=== PATIENT | female | born 1935 | race Caucasian/White ===

== ENCOUNTER → 2016-12-28 | Outpatient (CLI) | payer OTHER ==
--- NOTE | 2016-12-28 14:09 | MAMMOGRAPHY REPORT ---
BILATERAL DIGITAL SCREENING MAMMOGRAM WITH CAD: 12/28/2016 TECHNIQUE: Current study was also evaluated with a Computer Aided Detection (CAD) system. COMPARISON: Comparison is made to exams dated: 12/20/2015 mammogram, 11/02/2014 mammogram, 10/01/2013 mammogram, 09/15/2012 mammogram, 09/11/2011 mammogram - [facility], and 08/25/2009. BREAST COMPOSITION: There are scattered areas of fibroglandular density in both breasts. FINDINGS: No suspicious masses, calcifications, or areas of architectural distortion are noted in e ither breast. There has been no significant interval change compared to prior exams. Scattered bilat eral benign-appearing calcifications are not significantly changed. Small circumscribed benign-appe aring masses bilaterally are not significantly changed. IMPRESSION: ACR BI-RADS CATEGORY 2: BENIGN There is no mammographic evidence of malignancy. A 1 year screening mammogram is recommended. The p atient will receive written notification of the results. Approximately 10% of breast cancers are not detected with mammography. A negative mammographic repor t should not delay biopsy if a clinically suggestive mass is present. Toña Lim M.D. ah/:12/28/2016 10:00:07 Dentist Private Practice: Minerva VILCHIS(Brent)(Tushar), [facility] letter sent: Normal 1/2 BI-RADS Code: ACR BI-RADS Category 2: Benign
== END | disposition home or self-care (01) ==
LOC: C.MAMM 09:02
PROVIDERS: ATTEND Family Medicine
DX: Z12.31 Encounter for screening mammogram for malignant neoplasm of breast (principal)

== ENCOUNTER → 2018-01-28 | Outpatient (CLI) | payer OTHER ==
--- NOTE | 2018-01-29 14:14 | MAMMOGRAPHY REPORT ---
BILATERAL DIGITAL SCREENING MAMMOGRAM TOMOSYNTHESIS WITH CAD: 01/28/2018 CLINICAL HISTORY: Routine screening. Patient has no complaints. TECHNIQUE: Breast tomosynthesis in addition to standard 2D mammography was performed. Current study was also evaluated with a Computer Aided Detection (CAD) system. COMPARISON: Comparison is made to exams dated: 12/28/2016 mammogram, 12/20/2015 mammogram, 11/02/2014 m ammogram, 09/15/2012 mammogram, 10/01/2013 mammogram, and 09/11/2011 mammogram - [facility]. BREAST COMPOSITION: There are scattered areas of fibroglandular density in both breasts. FINDINGS: No suspicious masses, calcifications, or areas of architectural distortion are noted in ei ther breast. There has been no significant interval change compared to prior exams. Bilateral nodula rity and scattered bilateral benign-appearing calcifications are not significantly changed. IMPRESSION: ACR BI-RADS CATEGORY 2: BENIGN There is no mammographic evidence of malignancy. A 1 year screening mammogram is recommended. The pa tient will receive written notification of the results. Approximately 10% of breast cancers are not detected with mammography. A negative mammographic report should not delay biopsy if a clinically suggestive mass is present. Toña Lim M.D. ah/:01/28/2018 15:06:48 Senior [employer] Database Administrator: Tatianna LINO)(M), [facility] letter sent: Normal 1/2 BI-RADS Code: ACR BI-RADS Category 2: Benign
== END | disposition home or self-care (01) ==
LOC: C.MAMM 13:55
PROVIDERS: ATTEND Family Medicine
DX: Z12.31 Encounter for screening mammogram for malignant neoplasm of breast (principal)

== ENCOUNTER 2025-01-18 19:53 | Inpatient (IN) ==
[2025-01-18] MEDS: SODIUM CHLORIDE 0.9% 1,000 ML IV ONE (20:11)
[2025-01-18] MEDS: ONDANSETRON INJ 2 MG/ML 2 ML VIAL IV STA (20:11)
[2025-01-18] MEDS: FAMOTIDINE 20MG IV PUSH 20 MG/5 ML SYR IV STA (20:12)
--- NOTE | 2025-01-18 20:24 | Emergency Department Note ---
Impression & Plan SBO (small bowel obstruction), Nausea & vomiting, Abdominal pain, lower ED Provider Note HISTORY OF PRESENT ILLNESS: Patient is an 89-year-old female presenting with abdominal pain and vomiting. Patient reports that earlier this morning she developed pain at her umbilicus. States that she has proceeded to have multiple episodes of vomiting throughout the day. States that her vomit is dark in color and she is worried it may be blood. Denies any anticoagulation or antiplatelet use. She denies any chest pain or shortness of breath. She has a history of constipation reports her last bowel movement was 3 days ago. She has an abdominal surgical history significant for an appendectomy. Denies any diarrhea. Denies any recent sick contact exposures. She locates the pain at her umbilicus and denies any radiation of the pain. ROS: as above PHYSICAL EXAM: Constitutional: Patient appears in no acute distress. HENT: Head: Normocephalic and atraumatic. Eyes: EOMI, PERRL Mouth/Throat: Mucous membranes moist. Neck: Trachea midline. Neck supple. Cardiovascular: RRR, No murmurs, rubs or gallops. Intact distal pulses. Pulmonary/Chest: No respiratory distress. Breath sounds clear and equal bilaterally. Abdominal: Abdomen soft, no tenderness, rebound or guarding. RUQ TTP Musculoskeletal: No edema, tenderness or deformity noted. Skin: Warm and dry. No rash, erythema, pallor or cyanosis Psychiatric: Appropriate mood and affect for situation. Neurological: Alert and keenly responsive. CN II-XII grossly intact, moving all extremities equally and fully. MDM: - Vitals signs showed hypertension - History obtained via patient. History as above. - Chronic conditions affecting care: HTN; GERD; HLD - Differential diagnoses include, but are not limited to: diverticulitis; UTI; ureteral stone; bowel obstruction; ischemic colitis - Order placed for continuous cardiac monitoring. At this time, monitor showed rate of 78 bpm with normal sinus rhythm, per my interpretation. - External medical records reviewed. Family practice office visit note dated was reviewed. Patient was seen for bronchitis. - EKG image interpreted by myself showed normal sinus rhythm. Rate 97 bpm. QT 364. No acute ischemic changes. - Laboratory workup interpreted by myself showed leukocytosis (WBC 14.63); normal PT/INR; slight hyponatremia (Na 132); normal lactate; elevated AST (40); normal troponin; normal lipase; hyperglycemia (glucose 149) with normal anion gap - Viral respiratory panel negative - Patient was given 4 mg IV Zofran, 20 mg IV Pepcid, 50 mcg IV fentanyl, 1 g IV Tylenol and 1 L normal saline in the emergency department for symptomatic management. After narcotic dosing, the patient did desaturate down into the mid 80s and was placed on 2 L nasal cannula. - CT abdomen/pelvis with IV contrast showed an interpreted terminate grade mid small bowel obstruction. Also noted to have diverticulosis of the sigmoid colon without diverticulitis. Also noted to have small amount of edema and free fluid in the right lower quadrant. - UA ordered, but patient has not given sample yet. - Discussion was had with bottle caser about patient's case and need for admission - Hospitalist consulted for admission - Patient admitted [facility] for further evaluation and management. ASSESSMENT AND PLAN: Diagnosis: Small bowel obstruction; nausea and vomiting; lower abdominal pain Plan: Admit Past Med/Surg History Problem List (Updated 01/18/25 @ 22:41 by Malu De La O MD) Abdominal pain, lower (Acute) Nausea & vomiting (Acute) SBO (small bowel obstruction) (Acute) GERD (gastroesophageal reflux disease) Upper airway cough syndrome Cough Medical History (Updated 01/18/25 @ 22:41 by Malu De La O MD) Restless leg syndrome Hypertension Family History Other Family history non-contributory Social History Smoking Status: Never smoker Preferred Language: Faroese Feels Safe at Home: Yes Allergies Allergies Allergy/AdvReac Type Severity Reaction Status Date / Time morphine AdvReac Severe Vomiting Unverified 12/23/23 14:05 lisinopril AdvReac Cough Unverified 12/23/23 14:05 NONE Allergy Unknown . Uncoded 12/23/23 14:05 Home Meds Home Medications Medication Instructions Recorded Confirmed amlodipine 5 mg tablet 5 mg PO QAM 03/11/21 12/23/23 cholecalciferol (vitamin D3) 25 25 mcg PO QAM 03/11/21 12/23/23 mcg (1,000 unit) tablet famotidine 20 mg tablet (Pepcid) 20 mg PO DAILY PRN Acid Reflux 03/11/21 12/23/23 hydrochlorothiazide 25 mg tablet 25 mg PO QAM 03/11/21 12/23/23 pantoprazole 40 mg tablet,delayed 40 mg PO QAM 03/11/21 12/23/23 release potassium chloride 20 mEq 20 meq PO QAM 03/11/21 12/23/23 tablet,extended release(part/cryst) simvastatin 20 mg tablet 20 mg PO HS 03/11/21 12/23/23 albuterol sulfate 90 mcg/actuation 2 puff inhalation Q6H PRN 11/21/23 12/23/23 aerosol inhaler cough/wheezing ascorbic acid (vitamin C) 500 mg 0 mg PO QAM 11/21/23 12/23/23 tablet (Vitamin C) dextromethorphan-guaifenesin 10 1 tab-cap PO Q8H PRN Congestion 11/21/23 12/23/23 mg-200 mg capsule (Mucinex Cough-Chest Congestion HBP) ropinirole 1 mg tablet 1 mg PO BID 11/21/23 12/23/23 hydroxyzine HCl 10 mg tablet 10 mg PO .QHS 12/23/23 12/23/23 Previous Rx's Medication Instructions Recorded benzonatate 200 mg capsule 200 mg PO TID PRN cough #20 caps 11/21/23 prednisone 10 mg tablet 10 mg PO DIRECTED #31 tabs 11/21/23 Results & Data (ED) Vital Signs Vital Signs - 24 hr 01/18/25 19:56 01/18/25 20:02 01/18/25 20:02 Temperature 36.6 C Temperature Source Temporal Artery Scan Pulse Rate 98 H 84 Pulse Rate [Apical] 84 Pulse Rhythm Regular Pulse Rhythm [Apical] Regular Pulse Strength [Apical] Normal Respiratory Rate 19 18 18 Respiratory Effort / Characteristics Non-Labored Non-Labored Spontaneous Respiratory Depth Normal Normal Respiratory Pattern Regular Blood Pressure 154/90 H Blood Pressure [Right Arm] 160/101 H Blood Pressure Mean 111 Blood Pressure Mean [Right Arm] 120 Blood Pressure Position [Right Arm] Sitting Pulse Oximetry 98 95 95 Oxygen Delivery Method Room Air Room Air Room Air Sepsis Recent Fever Within 48 Hours No Sepsis New/Unexplained Change in Mental Status No Sepsis Action Taken by Nursing No Action Required 01/18/25 20:16 01/18/25 22:00 Temperature Temperature Source Pulse Rate 89 Pulse Rate [Apical] 78 Pulse Rhythm Pulse Rhythm [Apical] Regular Pulse Strength [Apical] Normal Respiratory Rate 18 Respiratory Effort / Characteristics Non-Labored Spontaneous Respiratory Depth Normal Respiratory Pattern Regular Blood Pressure Blood Pressure [Right Arm] 153/76 H Blood Pressure Mean Blood Pressure Mean [Right Arm] 101 Blood Pressure Position [Right Arm] Lying Pulse Oximetry 94 Oxygen Delivery Method Room Air Sepsis Recent Fever Within 48 Hours Sepsis New/Unexplained Change in Mental Status Sepsis Action Taken by Nursing Laboratory Data 01/18/25 20:11 01/18/25 20:11 Lab Results 01/18/25 01/18/25 01/18/25 Range/Units 20:11 20:21 22:00 WBC 14.63 H (4.8-10.8) K/ul RBC 4.76 (4.20-5.40) M/uL Hgb 14.7 (12.0-16.0) g/dl Hct 43.4 (37.0-47.0) % MCV 91.2 (80.0-100.0) fL MCH 30.9 (25.0-34.0) pg MCHC 33.9 (32.0-36.0) g/dL RDW Std Deviation 44.7 (36.4-46.3) fL RDW Coeff of Jt 13.2 (11.5-14.5) % Plt Count 306 (130-400) K/uL MPV 9.0 L (9.4-12.4) fL Immature Gran % (Auto) 0.3 % Neut % (Auto) 86.5 % Lymph % (Auto) 8.1 % [place] % (Auto) 4.6 % Eos % (Auto) 0.2 % Baso % (Auto) 0.3 % Neut # (Auto) 12.64 H (1.40-6.50) K/uL Lymph # (Auto) 1.18 L (1.20-3.40) K/uL [place] # (Auto) 0.68 H (0.11-0.59) K/uL Eos # (Auto) 0.03 (0.00-0.50) K/uL Baso # (Auto) 0.05 (0.00-0.20) K/uL Immature Gran # (Auto) 0.05 (0.01-0.20) K/uL PT 10.5 (9.0-12.0) Seconds INR 1.0 (0.9-1.1) Sodium 132 L (136-145) mmol/L Potassium 3.8 (3.5-5.1) mmol/L Chloride 99 (98-107) mmol/L Carbon Dioxide 25 (21-32) mmol/L Anion Gap 8 (3-11) BUN 21 (6-23) mg/dl Creatinine 0.91 (0.6-1.2) mg/dl Est Cr Clr Drug Dosing 41.4 ml/min eGFR 61.06 BUN/Creatinine Ratio 23.1 H (10-20) Glucose 149 H (70-99(Fasting)) mg/dl Lactate 0.7 (0.4-2.0) mmol/L Calcium 10.2 (8.6-10.3) mg/dl Total Bilirubin 0.9 (0.2-1.0) mg/dl AST 40 H (13-39) U/L ALT 25 (7-52) U/L Alkaline Phosphatase 70 (34-104) U/L Troponin I High Sens 12.8 (0-14) pg/ml Total Protein 7.5 (6.0-8.3) gm/dl Albumin 4.8 (3.4-5.0) gm/dl Globulin 2.7 (2.5-4.0) gm/dl Albumin/Globulin Ratio 1.8 (0.9-2) Lipase 30 (11-82) U/L Adenovirus (PCR) Not Detected (NotDetected) B. pertussis DNA (PCR) Not Detected (NotDetected) B.parapertussis DNA PCR Not Detected (NotDetected) C. pneumoniae DNA (PCR) Not Detected (NotDetected) Coronavirus OC43 (PCR) Not Detected (NotDetected) Coronavirus HKU1 (PCR) Not Detected (NotDetected) Coronavirus 229E (PCR) Not Detected (NotDetected) SARS-CoV-2 (PCR) Not Detected (NotDetected) Coronavirus NL63 (PCR) Not Detected (NotDetected) Human Metapneumovir PCR Not Detected (NotDetected) Influenza Type A (PCR) Not Detected (NotDetected) Influenza Type B (PCR) Not Detected (NotDetected) M. pneumoniae (PCR) Not Detected (NotDetected) Parainfluenza 1 (PCR) Not Detected (NotDetected) Parainfluenza 2 (PCR) Not Detected (NotDetected) Parainfluenza 3 (PCR) Not Detected (NotDetected) Parainfluenza 4 (PCR) Not Detected (NotDetected) RSV (PCR) Not Detected (NotDetected) Entero/Rhino (PCR) Not Detected (NotDetected) Administered Medications Discontinued Medications Fentanyl Citrate (Fentanyl Citrate Pf 100 Mcg/2 Ml Vial) 50 mcg IV NOW STA Stop: 01/18/25 20:22 Last Admin: 01/18/25 20:26 Dose: 50 mcg Documented By: SAMIRA Sodium Chloride (Nss) 1,000 mls @ 999 mls/hr IV .Q1H1M ONE Stop: 01/18/25 21:02 Last Infusion: 01/18/25 21:03 Dose: Infused Documented By: Admin: 01/18/25 20:11 Dose: 999 mls/hr Documented By: SAMIRA Famotidine (Pepcid 20mg Iv Push) 20 mg in 5 mls @ 2.5 mls/min IV NOW STA Stop: 01/18/25 20:03 Last Admin: 01/18/25 20:12 Dose: 2.5 mls/min Documented By: SAMIRA Acetaminophen (Ofirmev) 1,000 mg in 100 mls @ 400 mls/hr IV NOW STA Stop: 01/18/25 20:35 Last Infusion: 01/18/25 20:55 Dose: Infused Documented By: Admin: 01/18/25 20:25 Dose: 400 mls/hr Documented By: SAMIRA Ioversol (Optiray 320 100ml) 90 ml IV ONCE ONE Stop: 01/18/25 21:06 Last Admin: 01/18/25 21:05 Dose: 90 ml Documented By: CARMEN Ondansetron HCl (Ondansetron Inj 2 Mg/Ml 2 Ml Vial) 4 mg IV NOW STA Stop: 01/18/25 20:03 Last Admin: 01/18/25 20:11 Dose: 4 mg Documented By: SAMIRA Imaging Data Radiologist's Impression: Abdomen/Pelvis CT 01/18/25 20:02 Exam(s): CT ABDOMEN + PELVIS With Contrast IV Amt: 90 ml optiray 320 EXAM: CT Abdomen and Pelvis With Intravenous Contrast CLINICAL HISTORY: Reason for exam: lower abd pain; vomiting. TECHNIQUE: Axial computed tomography images of the abdomen and pelvis with intravenous contrast. CTDI is 26.8 mGy and DLP is 1219 mGy-cm. Automated exposure control was utilized for the study. A dose lowering technique was utilized adhering to the principles of ALARA. CONTRAST: Patient received 90 ml optiray 320 of IV contrast COMPARISON: Ultrasound from October 25, 2023 FINDINGS: Lung bases: Unremarkable. No mass. No consolidation. ABDOMEN: Liver: Unremarkable. No mass. Gallbladder and bile ducts: Unremarkable. No calcified stones. No ductal dilation. Pancreas: Unremarkable. No mass. No ductal dilation. Spleen: Unremarkable. No splenomegaly. Adrenals: Unremarkable. No mass. Kidneys and ureters: Unremarkable. No solid mass. No hydronephrosis. Stomach and bowel: There are several fluid-filled dilated proximal small bowel loops demonstrate as well as solid-appearing stool throughout the mid small bowel. The distal small bowel is completely decompressed. PELVIS: Appendix: No findings to suggest acute appendicitis. Bladder: Unremarkable. No mass. Reproductive: Unremarkable as visualized. ABDOMEN and PELVIS: Intraperitoneal space: Small amount of edema and free fluid in the right lower quadrant mesentery. No pneumoperitoneum or abscess is seen. There is diverticulosis of the sigmoid colon without evidence of acute diverticulitis. The uterus is absent. No free fluid in the pelvis. Bones/joints: Moderate degenerative changes in the spine. No acute fracture or subluxation is seen. Soft tissues: Unremarkable. Vasculature: The abdominal aorta is mildly calcified irregular but nondilated measuring 2.1 cm. Lymph nodes: Unremarkable. No enlarged lymph nodes. IMPRESSION: 1. There are several fluid-filled dilated proximal small bowel loops demonstrate as well as solid-appearing stool throughout the mid small bowel. The distal small bowel is completely decompressed. Probable intermediate grade mid small bowel obstruction. Consider small intestinal bacterial overgrowth (SIBO). 2. Small amount of edema and free fluid in the right lower quadrant mesentery. No pneumoperitoneum or abscess is seen. There is diverticulosis of the sigmoid colon without evidence of acute diverticulitis. Electronically signed by: Dewayne Nguyen MD 01/18/25 22:18 PM Discharge Plan Visit Data Chief Complaint: Abdominal Pain Stated Complaint: STOMACH PAIN, VOMITING ED Provider: Malu De La O Discharge Problem: SBO (small bowel obstruction), Nausea & vomiting, Abdominal pain, lower Forms Stand Alone Forms: [facility] Prescriptions Prescriptions: No Action hydroxyzine HCl 10 mg tablet 10 mg PO .QHS amlodipine 5 mg tablet 5 mg PO QAM potassium chloride 20 mEq tablet,ER particles/crystals 20 meq PO QAM hydrochlorothiazide 25 mg tablet 25 mg PO QAM simvastatin 20 mg tablet 20 mg PO HS pantoprazole 40 mg tablet,delayed release (DR/EC) 40 mg PO QAM cholecalciferol (vitamin D3) 25 mcg (1,000 unit) Tablet 25 mcg PO QAM famotidine [Pepcid] 20 mg Tablet 20 mg PO DAILY PRN (Reason: Acid Reflux) ropinirole 1 mg tablet 1 mg PO BID Mucinex Cough-Chest Congest HB 10-200 mg Capsule 1 tab-cap PO Q8H PRN (Reason: Congestion) ascorbic acid (vitamin C) [Vitamin C] 500 mg Tablet 0 mg PO QAM Rx Instructions: Pt unsure of strength albuterol sulfate 90 mcg/actuation HFA aerosol inhaler 2 puff INHALATION Q6H PRN (Reason: cough/wheezing) prednisone 10 mg tablet 10 mg PO DIRECTED Qty: 31 0RF benzonatate 200 mg capsule 200 mg PO TID PRN (Reason: cough) Qty: 20 0RF Referrals Referrals: Halle Roberts MD [Primary Care Provider] -
[2025-01-18] MEDS: ACETAMINOPHEN 1,000 MG/100 ML VIAL IV STA (20:25)
[2025-01-18] MEDS: fentaNYL citrate PF 100 MCG/2 ML VIAL IV STA (20:26)
[2025-01-18 20:33] LABS: Basophils # (auto) 0.05 K/uL (0.00-0.20); Basophils % (auto) 0.3 %; Eosinophils # (auto) 0.03 K/uL (0.00-0.50); Eosinophils % (auto) 0.2 %; Hematocrit (blood only) 43.4 % (37.0-47.0); Hemoglobin 14.7 g/dl (12.0-16.0); Immature Granulocytes # (auto) 0.05 K/uL (0.01-0.20); Immature Granulocytes % (auto) 0.3 %; Lymphocytes # (auto) 1.18 K/uL (1.20-3.40); Lymphocytes % (auto) 8.1 %; Mean Corpuscular Hemoglobin 30.9 pg (25.0-34.0); Mean Corpuscular Hgb Conc 33.9 g/dL (32.0-36.0); Mean Corpuscular Volume 91.2 fL (80.0-100.0); Monocytes # (auto) 0.68 K/uL (0.11-0.59); Monocytes % (auto) 4.6 %; Neutrophils # (auto) 12.64 K/uL (1.40-6.50); Neutrophils % (auto) 86.5 %; Platelet Count 306 K/uL (130-400); RDW Coefficient of Variation 13.2 % (11.5-14.5); RDW Standard Deviation 44.7 fL (36.4-46.3); Red Blood Count 4.76 M/uL (4.20-5.40); White Blood Count 14.63 K/ul (4.8-10.8)
[2025-01-18 20:54] LABS: Albumin Globulin Ratio 1.8 (0.9-2); Albumin Level 4.8 gm/dl (3.4-5.0); BUN Creatinine Ratio 23.1 (10-20); Bilirubin,Total 0.9 mg/dl (0.2-1.0); Calcium 10.2 mg/dl (8.6-10.3); Creatinine Clr Calc Pharmacy 41.4 ml/min; Globulin 2.7 gm/dl (2.5-4.0); Potassium 3.8 mmol/L (3.5-5.1); Total Protein 7.5 gm/dl (6.0-8.3)
[2025-01-18 21:00] LABS: Troponin I High Sensitivity 12.8 pg/ml (0-14)
[2025-01-18 21:01] LABS: Prothrombin Time 10.5 Seconds (9.0-12.0)
[2025-01-18] MEDS: OPTIRAY 320 100ml IV ONE (21:05)
[2025-01-18 21:23] LABS: Adenovirus PCR Not Detected (NotDetected); Bordetella parapertussis PCR Not Detected (NotDetected); Bordetella pertussis PCR Not Detected (NotDetected); Chlamydia pneumoniae PCR Not Detected (NotDetected); Coronavirus 229E PCR Not Detected (NotDetected); Coronavirus CoV-2 (COVID19)PCR Not Detected (NotDetected); Coronavirus HKU1 PCR Not Detected (NotDetected); Coronavirus NL63 PCR Not Detected (NotDetected); Coronavirus OC43PCR Not Detected (NotDetected); Human Metapneumovirus PCR Not Detected (NotDetected); Influenza A PCR Not Detected (NotDetected); Influenza B PCR Not Detected (NotDetected); Mycoplasma pneumoniae PCR Not Detected (NotDetected); Parainfluenza Virus 1 PCR Not Detected (NotDetected); Parainfluenza Virus 2 PCR Not Detected (NotDetected); Parainfluenza Virus 3 PCR Not Detected (NotDetected); Parainfluenza Virus 4 PCR Not Detected (NotDetected); Respiratory Syncytial VirusPCR Not Detected (NotDetected); Rhinovirus/Enterovirus PCR Not Detected (NotDetected)
--- NOTE | 2025-01-18 22:20 | CT Scan Report ---
Exam(s): CT ABDOMEN + PELVIS With Contrast IV Amt: 90 ml optiray 320 EXAM: CT Abdomen and Pelvis With Intravenous Contrast CLINICAL HISTORY: Reason for exam: lower abd pain; vomiting. TECHNIQUE: Axial computed tomography images of the abdomen and pelvis with intravenous contrast. CTDI is 26.8 mGy and DLP is 1219 mGy-cm. Automated exposure control was utilized for the study. A dose lowering technique was utilized adhering to the principles of ALARA. CONTRAST: Patient received 90 ml optiray 320 of IV contrast COMPARISON: Ultrasound from October 25, 2023 FINDINGS: Lung bases: Unremarkable. No mass. No consolidation. ABDOMEN: Liver: Unremarkable. No mass. Gallbladder and bile ducts: Unremarkable. No calcified stones. No ductal dilation. Pancreas: Unremarkable. No mass. No ductal dilation. Spleen: Unremarkable. No splenomegaly. Adrenals: Unremarkable. No mass. Kidneys and ureters: Unremarkable. No solid mass. No hydronephrosis. Stomach and bowel: There are several fluid-filled dilated proximal small bowel loops demonstrate as well as solid-appearing stool throughout the mid small bowel. The distal small bowel is completely decompressed. PELVIS: Appendix: No findings to suggest acute appendicitis. Bladder: Unremarkable. No mass. Reproductive: Unremarkable as visualized. ABDOMEN and PELVIS: Intraperitoneal space: Small amount of edema and free fluid in the right lower quadrant mesentery. No pneumoperitoneum or abscess is seen. There is diverticulosis of the sigmoid colon without evidence of acute diverticulitis. The uterus is absent. No free fluid in the pelvis. Bones/joints: Moderate degenerative changes in the spine. No acute fracture or subluxation is seen. Soft tissues: Unremarkable. Vasculature: The abdominal aorta is mildly calcified irregular but nondilated measuring 2.1 cm. Lymph nodes: Unremarkable. No enlarged lymph nodes. IMPRESSION: 1. There are several fluid-filled dilated proximal small bowel loops demonstrate as well as solid-appearing stool throughout the mid small bowel. The distal small bowel is completely decompressed. Probable intermediate grade mid small bowel obstruction. Consider small intestinal bacterial overgrowth (SIBO). 2. Small amount of edema and free fluid in the right lower quadrant mesentery. No pneumoperitoneum or abscess is seen. There is diverticulosis of the sigmoid colon without evidence of acute diverticulitis. Electronically signed by: Dewayne Nguyen MD 01/18/25 22:18 PM
[2025-01-18 22:39] LABS: Appearance Urine Clear (Clear); Bilirubin Urine Negative (Negative); Blood Urine Negative (Negative); Color Urine Yellow; Glucose Urine UA Negative (Negative); Ketones Urine Negative (Negative); Leukocyte Esterase Urine Negative (Negative); Nitrite Urine Negative (Negative); Protein Urine Negative (Negative); Specific Gravity Urine 1.042 (1.000-1.030); Urobilinogen Urine Negative (Negative)
--- NOTE | 2025-01-18 22:46 | History & Physical Report ---
Date of Service January 18, 2025 Assessment & Plan (1) SBO (small bowel obstruction): (2) Small intestinal bacterial overgrowth (SIBO): (3) Upper GI bleed: (4) Dehydration: (5) Hyponatremia: (6) Hypertension: Plan Patient is a 89-year-old female with past medical history of hypertension, restless leg syndrome, GERD. Past abdominal surgical history consist of hysterectomy and appendectomy many years ago as per patient. She presented to the ED due to severe abdominal pain and dark vomiting (concern for hematemesis) x 1 day, as well as constipation x [address] showed distal small bowel decompression concerning for intermediate mid small bowel obstruction and to be considered for small intestinal bacterial overgrowth. Patient to be admitted for IV antibiotics, n.p.o. status, and to have general surgery eval. #SBO/SIBO last BM 01/[address] showed distal small bowel completely decompressed, intermediate grade small mid small bowel obstruction, consider small intestinal bacterial overgrowth, edema/free fluid in RLQ mesentery, diverticulosis leukocytosis with WBC 14.63 - nonseptic on admission - laccate 0.7, afebrile, VSS n.p.o. status Mild distention, will treat conservatively on admission, no immediate need for NG tube IV Protonix and Pepcid BID IV Tylenol scheduled for pain control Caution with IV opioids as will contribute to constipation and patient became hypoxic in ED after IV fentanyl, morphine allergy - Dilaudid 0.25mg IV prn IV Zofran as needed IV Zosyn ordered for concern for small intestinal bacterial overgrowth General Surgery consulted #UGIB patient with hematemesis x1 day hemodynamically stable, BUN 21, H&H stable Suspect 2/2 vomiting, however to have EGD in outpatient setting in February no vomiting since admission - will need Gastroccult if vomits avoid NSAIDs IV Protonix and Pepcid as above N.p.o. status General Surgery consulted as above, may need considered for EGD #dehydration/ hyponatremia 2/2 hypovolemia with poor p.o. intake/vomiting NA 132, however chronic and at baseline BUN/CR 23.1, urine gravity 1.042 1L NSS bolus in ED, continue IVF resuscitation with LR at 80 mL/hour #HTN Holding home losartan and amlodipine with n.p.o. status Will have prn Lopressor for SBP >185 or DBP >95 Chronic stable diagnoses: GERD - IV Pepcid and Protonix as above HLD - holding statin with NPO status RLS - holding ropinirole and zolpidem with NPO status VTE ppx: SCDs, defer chemical ppx with concern for UGIB Diet: NPO Dispo: med/tele with concern for hypoxia after fentanyl in ED Admission and Anticipated Discharge Date Admission Date: 01/18/25 History of Present Illness Chief Complaint: abd pain Primary Care Provider: Halle Roberts MD Patient is a 89-year-old female with past medical history of hypertension, restless leg syndrome, GERD. Past abdominal surgical history consist of hysterectomy and appendectomy many years ago as per patient. She presented to the ED due to severe abdominal pain and dark vomiting (concern for hematemesis) x 1 day, as well as constipation x [address] showed distal small bowel decompression concerning for intermediate mid small bowel obstruction and to be considered for small intestinal bacterial overgrowth. Patient to be admitted for IV antibiotics, n.p.o. status, and to have general surgery eval. Patient seen at bedside with her , daughter, and son-in-law present. She stated that today she began vomiting, approximately 3 times, dark material that was concerning for blood. She has been unable to tolerate any p.o. intake today. She has not vomited since coming into the ED. She also has significant abdominal pain that was relieved with fentanyl in the ED however became hypoxic with O2 stats reported in the 80s. On admission, nausea and pain are well-contr olled. Patient stated she has chronic constipation and typically goes several days without having a bowel movement, her last bowel movement was on Saturday. Patient denies fever, chills, headache, dizziness, lightheadedness, dyspnea, chest pain. she stated she follows with [facility] and had a echocardiogram last week due to syncope that she reports was negative. She also had a barium swallow approximately a month ago which did show something abnormal with her esophagus however she is not sure which showed, she follows with [facility]. She stated she is to have an EGD at the end of February with GI. She stated her previous colonoscopies have not shown any allergies. She does not use nicotine products for frequently drink alcohol. She denies past history of CA, DM, previous VTE, ulcerative colitis, Crohn's disease, history of small bowel obstructions. She took her morning medications but did not yet take her evening medications. She wishes to be full code. Allergies Allergy/AdvReac Type Severity Reaction Status Date / Time No Known Drug Allergies Allergy Unknown Unknown Verified 01/18/25 23:26 morphine AdvReac Severe Vomiting Unverified 12/23/23 14:05 lisinopril AdvReac Cough Unverified 12/23/23 14:05 Home Medications Medication Instructions Recorded Confirmed Type amlodipine 5 mg tablet 5 mg PO QAM 03/11/21 01/18/25 History cholecalciferol (vitamin D3) 25 25 mcg PO QAM 03/11/21 01/18/25 History mcg (1,000 unit) tablet famotidine 20 mg tablet (Pepcid) 20 mg PO DAILY PRN Acid Reflux 03/11/21 01/18/25 History pantoprazole 40 mg tablet,delayed 40 mg PO QAM 03/11/21 01/18/25 History release simvastatin 20 mg tablet 20 mg PO HS 03/11/21 01/18/25 History albuterol sulfate 90 mcg/actuation 2 puff inhalation Q6H PRN 11/21/23 01/18/25 History aerosol inhaler cough/wheezing ascorbic acid (vitamin C) 500 mg 500 mg PO QAM 11/21/23 01/18/25 History tablet (Vitamin C) dextromethorphan-guaifenesin 10 1 tab-cap PO Q8H PRN Congestion 11/21/23 01/18/25 History mg-200 mg capsule (Mucinex Cough-Chest Congestion HBP) ropinirole 1 mg tablet 1 mg PO BID 11/21/23 01/18/25 History fluticasone propionate 50 2 spray intranasal DAILY 01/18/25 01/18/25 History mcg/actuation nasal spray,suspension losartan 25 mg tablet 25 mg PO DAILY 01/18/25 01/18/25 History zolpidem 5 mg tablet 5 mg PO HS PRN Sleep 01/18/25 01/18/25 History Past Med/Surg History Problem List (Updated 01/18/25 @ 23:43 by Jerrica Brown PA-C) Hypertension Hyponatremia Dehydration Upper GI bleed Small intestinal bacterial overgrowth (SIBO) Abdominal pain, lower (Acute) Nausea & vomiting (Acute) SBO (small bowel obstruction) (Acute) GERD (gastroesophageal reflux disease) Upper airway cough syndrome Cough Medical History (Updated 01/18/25 @ 23:43 by Jerrica Brown PA-C) Restless leg syndrome Family History Other Family history non-contributory Social History Smoking Status: Never smoker Hx Alcohol Use: No Hx Substance Use: No Preferred Language: Hungarian Communication Ability: Effective Finance Intern Required: No Beliefs That Will Affect Care: None Current Living Situation: Spouse Other Information That Helps Us Care for You: No Feels Safe at Home: Yes Safety Concerns: Feels Safe At This Time Assistive Devices: Glasses Review of Systems Review of Systems: see HPI Physical Exam Physical Exam: The patient is awake, alert and oriented 3, well developed and well nourished, normocephalic and atraumatic, in no acute distress. Non-toxic appearing. HEENT- EOMI, mucous membranes dry. Hearing grossly intact. Heart-normal S1 and S2. No murmurs, rubs or gallops. Lungs-clear bilaterally, no respiratory distress, no accessory muscle use. Abdomen-normal bowel sounds and soft. No ascites noted. Tender to epigastric region. Extremities- no clubbing, cyanosis, or edema. Rheumatologic-normal range of motion. Psychiatric-normal affect. Results & Data Results & Data Vital Signs (Past 12 Hours) Vital Signs Temp Pulse Pulse Resp BP BP Pulse Ox 01/18/25 22:00 78 18 153/76 H 94 01/18/25 20:16 89 01/18/25 20:02 84 18 95 01/18/25 20:02 84 18 160/101 H 95 01/18/25 19:56 36.6 C 98 H 19 154/90 H 98 O2 Del Method 01/18/25 22:00 Room Air 01/18/25 20:16 01/18/25 20:02 Room Air 01/18/25 20:02 Room Air 01/18/25 19:56 Room Air Laboratory Results Reviewed CBC, PT/INR, CMP,lipase, lactate, bio fire, UA, troponin Diagnostic Findings reviewed ap ct Medications Administered ED1L NSS bolus, Zofran 4 Mg IV, Pepcid IV, Tylenol 1000 Mg IV, fentanyl 50 mcg Admissionpantoprazole IV, Zosyn 4.5 IV, LR at 80 mL/hour ECG Additional Comments: NSR, LVH, left anterior fascicular block Rate 97 QTc 462 Code Status & VTE Plan Code Status full VTE Prophylaxis Plan VTE Prophylaxis will be ordered: Yes Supervising Physician Co-Signing Physician Notes Attending addendum: I have physically seen this patient, have supervised the GERONIMO"s activities, and agree with the H&P unless as otherwise noted. Assessment and Plan: # The patient is an 89-year-old female with past medical history including hypertension, restless leg syndrome, GERD, COPD, hyperlipidemia, and insomnia. She presents to the emergency department with complaint of severe abdominal pain, dark vomitus concerning for possible hematemesis x 1 day, and constipation for approximately [address] scan of abdomen and pelvis concerning for small bowel obstruction,, with consideration for small intestinal bacterial overgrowth. [facility] is therefore [facility]. #Small bowel obstruction- CT scan abdomen pelvis shows distal small bowel completely decompressed, intermediate grade small mid small bowel obstruction, consideration for small intestinal bacterial overgrowth, edema/free fluid in the right lower quadrant mesentery, and diverticulosis without diverticulitis. Neutrophilic leukocytosis, with total WBC 14.63 NPO Pantoprazole 40 mg IV daily Famotidine 20 mg IV twice daily Acetaminophen 1 g IV every 8 hours as needed for mild pain or fever Dilaudid 0.25 mg IV every 3 hours as needed for moderate to severe pain Zofran 4 mg IV every 6 hours as needed Zosyn 4.5 g IV every 8 hours Status post 1 L normal saline bolus in the ED Placed on LR at 80 mL/h Serial CBC with differential, chemistry profile General Surgery consult Possible upper GI bleed/hematemesis x 1 day- Avoiding NSAIDs for pain control as noted Protonix and famotidine IV as noted N.p.o. Consider gastroenterology consult and possible EGD, she reportedly is to have an EGD in the outpatient setting in February. May need as inpatient Chronic medical conditions: Hypertension hold losartan and amlodipine while n.p.o. as needed Lopressor as noted Hyperlipidemia-temporarily holding simvastatin while n.p.o. Restless leg syndrome/insomnia-temporarily holding ropinirole and zolpidem while n.p.o. PG Care Time/CCT Total # of Minutes Spent Total Time Spent with Patient: Total time spent is greater than 50% in coordination of care (as documented) at patient's floor/unit and/or counseling patient: Coding Level of Care Code 15495 INT INP/OBS CARE 3/75MIN Diagnoses SBO (small bowel obstruction) K56.609 Small intestinal bacterial overgrowth (SIBO) K63.8219 Upper GI bleed K92.2 Dehydration E86.0 Hyponatremia E87.1 Hypertension I10 Hypertension type: unspecified (6) Hypertension Hypertension type: unspecified Qualified Code(s): I10 - Essential (primary) hypertension
[2025-01-19] MEDS: LACTATED RINGER'S 1,000 ML IV SCH
[2025-01-19] MEDS: PANTOprazole 40 MG/10 ML SYR IV ONE (00:01)
[2025-01-19] MEDS: PIPERACILLIN/TAZOBACTAM 4.5 GM/100 ML BAG IV ONE (00:01)
--- OUTSIDE RECORDS SUMMARY | 2025-01-19 00:30 | External Medical Summary | Continuity of Care Document ---
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 Name Role Phone Halle Roberts Primary Care Physician [phone] Encounter [facility] [id number] Date(s): 01/01/25 - 01/01/[address] [address] [phone] Encounter Diagnosis Body mass index [BMI] 33.0-33.9, adult(Discharge Diagnosis) - 01/01/25 Hyponatremia(Discharge Diagnosis) - 01/01/25 Chronic cough(Discharge Diagnosis) - 01/01/25 GERD (gastroesophageal reflux disease)(Discharge Diagnosis) - 01/01/25 HYPERTENSION.(Discharge Diagnosis) - 01/01/25 Insomnia, Unspecified(Discharge Diagnosis) - 01/01/25 Discharge Disposition: Home or Self Care Attending Physician: MD Roberts [place] Referring Physician: MD Roberts [place] Encounter Type: Clinic Allergies, Adverse Reactions, Alerts Substance Criticality Severity Reaction Reaction Severity Status naproxen unknown Active diltiazem cough Active metoprolol 1 fatigue Active morphine nausea and vomiting Active AVIVA Inhibitors cough Activ e traZODone 2 leg cramps Active 1fatigue 2leg cramp Assessment and Plan Extracted from: Title:Office Visit Note Author:MD Alejandra, Jorge schwartz Date:01/01/25 1.Hyponatremia Reviewed recentlab results. Sodium levelimproving,still below normal range. Patient complaining of muscle cramps. Advised todrinkliquid IVoncea dayfor 1 week. 2.Chronic cough Reviewed with patient previouspulmonologyoffice visit note. Most likely due toGERD. Per patientshe is doing welltoday. She only have occasional coughwith wheezingand mostly at night. 3.GERD (gastroesophageal reflux disease) -Reviewed GI office visit noteand fluoroscopy result -Djuaqdyylgkfjvyxey03 mgin the morning,advised to take famotidine 20 mgat night. -Advised to avoid triggers:Like spicy food,fatty food. -Patient is scheduled for endoscopy in February2025 .-Follow-up with GIspecialist 4.HYPERTENSION. Chronic. Stable. Blood pressure today 126/74. Continue amlodipine 5 mg 1 tablet once a day, hydrochlorothiazide 25 mg 1 tablet once a day, skiuckxe83 mg 1 tabletonce a day. Monitor blood pressure. Decrease salt intake. 5.Insomnia, Unspecified Chronic. Takeszolpidem 5 mgnightly. Follow-up in 3 months. Will repeatBMP. Immunizations Given and Recorded Vaccine Date Status Refusal Reason influenza virus vaccine, inactivated 09/11/23 Fransico rded influenza virus vaccine, inactivated 11/29/21 Give n influenza virus vaccine, inactivated 08/13/19 Give n influenza virus vaccine, inactivated 1 11/27/17 Re corded influenza virus vaccine, inactivated 09/28/16 Give n influenza virus vaccine, inactivated 2 09/12/15 Re corded influenza virus vaccine, inactivated 08/11/15 Fransico rded influenza virus vaccine, inactivated 3 09/28/14 Re corded influenza virus vaccine, inactivated 09/28/11 Fransico rded influenza virus vaccine, inactivated 4 07/20/09 Re corded influenza virus vaccine, inactivated 5 11/21/06 Re corded influenza virus vaccine, inactivated 6 09/18/05 Re corded SARS-CoV-2 (COVID-19) mRNA-1273 vaccine 01/17/21 R ecorded SARS-CoV-2 (COVID-19) mRNA-1273 vaccine 12/19/20 R ecorded tetanus/diphtheria/pertuss, acel (Tdap) 04/19/20 G iven zoster vaccine, inactivated 01/09/19 Recorded zoster vaccine, inactivated 07/12/18 Recorded pneumococcal 13-valent vaccine 09/28/15 Given pneumococcal 13-valent vaccine 7 09/21/12 Recorded pneumococcal 13-valent vaccine 8 11/11/12 Recorded pneumococcal 23-valent vaccine 9 09/29/12 Recorded pneumococcal 23-valent vaccine 09/21/12 Recorded pneumococcal 23-valent vaccine 10 09/01/02 Recorde d zoster vaccine live 11 01/11/10 Recorded zoster vaccine live 01/10/10 Recorded hepatitis A adult vaccine 12 01/27/08 Recorded hepatitis A adult vaccine 13 07/15/07 Recorded tetanus toxoids-diphtheria, Td (Adult) 14 02/14/06 Recorded 1Result Comment: 2018-04-14: Historical information-source unspecified 2Result Comment: 2018-04-14: Historical information-source unspecified 3Result Comment: 2018-04-14: Historical information-source unspecified 4Result Comment: 2018-04-14: Historical information-source unspecified 5Result Comment: 2018-04-14: Historical information-source unspecified 6Result Comment: 2018-04-14: Historical information-source unspecified 7Result Comment: [09/28/2015 Uncharted] was documented on 09-21-12 in error. Pt. was provided pneumococcal 23 vaccine on this date. 8Result Comment: 2018-04-14: Historical information-source unspecified 9Result Comment: 2018-04-14: Historical information-source unspecified 10Result Comment: 2018-04-14: Historical information-source unspecified 11Result Comment: 2018-04-14: Historical information-source unspecified 12Result Comment: 2018-04-14: Historical information-source unspecified 13Result Comment: 2018-04-14: Historical information-source unspecified 14Result Comment: 2018-04-14: Historical information-source unspecified Mental Status 01/01/25 Barriers to Learning one year None evide nt Mandatory Health Literacy Documentation Yes Health Literacy Communication Barriers N ever Primary Language Mexican Problem List Condition Confirmation Course Effective Dates Status H ealth Status Informant Changing skin lesion Confirmed Active Diaphragmatic Hernia without Mention of Obstruction or Gangrene Confirmed 02/04/13 Active Family history of skin cancer 1 Confirmed Active GERD Confirmed 02/04/13 Active History of basal cell carcinoma Confirmed Active History of Meniere's disease Confirmed Active HYPERTENSION. Confirmed 02/04/13 Active Impaired fasting glucose Confirmed Active Insomnia, Unspecified Confirmed Active Osteopenia 2 Confirmed Active Osteoporosis 3 Confirmed 08/02/20 Active Restless leg syndrome Confirmed Active 1Father had skin cancer. 2T score in 04/2016: -1.9 3start fosamax in 07/2020 Diagnosis Diagnosis Type Effective Dates Health Status Clinical Service Informant Body mass index [BMI] 33.0-33.9, adult Discharge Diagnosis 01/01/25 Non-Specified GERD (gastroesophageal reflux disease) Discharge Diagnosis 01/01/25 Non-Specified Chronic cough Discharge Diagnosis 01/01/25 Non-Specified HYPERTENSION. Discharge Diagnosis 01/01/25 Non-Specified Hyponatremia Discharge Diagnosis 01/01/25 Non-Specified Insomnia, Unspecified Discharge Diagnosis 01/01/25 Non-Specified Procedures Procedure Date Related Diagnosis Body Site Status Mammogram - screening 1 03/06/[address] of chest w and wo iv con 2 03/12/21 Completed Chest X-ray 3 03/11/[address] angiography of neck with contrast 4 03/11/[address] angiography of head with contrast 5 03/11/[address] of head wo con 6 03/11/21 Compl eted Chest X-ray 7 03/07/21 Completed Ultrasound scan of pelvis 8 08/16/20 Completed Bone density scan report 9 07/07/20 Completed Shave biopsy of skin 04/28/20 Comp leted Mammogram 10 05/01/19 Completed Shave biopsy and cauterisation of skin 03/24/19 Completed Mohs surgery 10/21/18 Completed Shave biopsy and cauterizati on of skin 11 09/22/18 Completed Mammogram - screening 12 01/28/18 Completed Mammogram - screening 13 12/28/16 Completed Bone density finding 14 04/26/16 C ompleted Colonoscopy 15 04/18/16 Completed Mammogram 16 12/20/15 Completed Mammogram - screening 17 11/02/14 Completed Cataract surgery 2010 Complete d Colonoscopy 1986 Completed Appendectomy 1966 Completed Tubal Ligation 1966 Completed cystocele repair Compl eted Hysterectomy , 20 Compl eted 1Impression: There is no mammographic evidence of malignancy. A 1 year screening mammogram is recommened. (03/07/2023) The patient will receive written notification of the results. 2no evidence of thoarcic aortic aneurysm or dissection. no evidence of acute pulmonary embolism no evidence of a cute parenchymal consolidation 3minor left basilar opacities, statistically ateleactatic 4no evidence of hemodynamically significant internal carotid artery stenosis. no evidence of vertebral artery stenosis or dissection stenosis involving the origin of the left external carotid artery 5unremarkable CT angiographyof the brain for age 6no acute intracranial findings 7Impression: Mild linear left lower lung opacities. Atelectasis is favored. Although less likely, and infectious process could appear similar. 81. Hysterectomy 2. Nonvisualization of the ovaries. No adnexal mass lesion. 9-1.8 Osteopenia j Dual Femur -3.1 Osteoporosis Left Forearm. 10-year probability of fracture no calculated. 10Cat 2- benign 11right upper nose 12There is no mammographic evidence of malignancy. A 1 year screening mammogram is reccomended. the patient will receive written notification of the results. 13Impression: There is no mammographic evidence of malignancy. A 1 year screening mammogram is recommended. The patient will receive written notification of the results. 14-1.9 15Diverticulosis in the sigmoid colon. No specimens collected. Repeat in 10 years. 16Normal 17Impression: negative No mammographic evidence of malignancy. Annual mammograpnic screening is recommended unless otherwise clinically indicated. 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 Hyponatremia. Reviewed lab results. Sodium level improved by 3 points. Still below the normal range. Deniesheadache, dizziness, chest pain or shortness of breath. Complaining ofoccasionalmuscle cramps.Denies diarrhea, denies frequent urination, denies fever. Chronic cough Patient reported thather cough is better now. She still have occasional cough at night with wheezing. Denies shortness of breath. Denies nasal congestion. Seen by pulmonology on 12/26/2023: 1. Cough 2. Upper airway cough syndrome Recommendation: Treatment with decongestant, antihistamine, topical nasal steroids, and saline sinus irrigation. Avoid steroids and antibiotic as these are unlikely to be effective in improving patient's symptoms. Treatment of reflux disease. No indication to use inhalers. Annual flu shot. COVID booster and RSV vaccination recommended. Follow-up as needed. GERD She takesomeprazole in the morningdaily. Takes famotidinein the afternoon or before going to bedas needed. States that she can feeltherefluxoff and on throughout the dayworse whenshe is lying downorwhen she is on recliner. States that she does not sleep flat on bed. Seen by [facility] 12/04/2024nd hadfluoroscopy done on 12/15/2024. See the result below. Plan is for her to have endoscopywhich is scheduledin February 2025. Seen by SHAW[facility] on 12/04/2024 1. Hiatal hernia 2. Dysphagia Fluoroscopy done on 12/15/2024 No esophageal mass or stricture Multiple episodes of GE reflux Mild esophageal dysmotility -HTN.Controlled by medication. -Insomnia. On Ambien 5 mgnightlyas needed. Review of Systems See HPI Physical Exam Vitals & Measurements T:36.5C HR:75(Monitored) RR:17 BP:138/75 SpO2:97% HT:153.7cm WT:78.1kg WT:78.100kg(Dosing) BMI:33.06 PHQ2 Data(Data Documented on:01/01/2025 08:08) Emotional health assessment NEGATIVE General: alert and oriented, no acute distress Eye: PERRL, EOMI, normal conjunctiva HENT: normocephalic, TMs clear, normal hearing, moist oral mucosa, no pharyngeal erythema, no sinus tenderness Neck: supple, non-tender, no lymphadenopathy, no thyromegaly Resp: Lungs CTA, non-labored respirations, BS equal, symmetrical expansion CV: normal rate and rhythm, no murmur, no gallop GI: soft, non-tender, non-distended, normal bowel sounds, no organomegaly : no CVA tenderness MS: normal gait Integumentary: warm, dry, pink, no cyanosis, intact, moist, no pallor, no rash Psychiatric: appropriate mood and affect, normal judgement, non-suicidal Assessment/Plan 1.Hyponatremia Reviewed recentlab results. Sodium levelimproving,still below normal range. Patient complaining of muscle cramps. Advised todrinkliquid IVoncea dayfor 1 week. 2.Chronic cough Reviewed with patient previouspulmonologyoffice visit note. Most likely due toGERD. Per patientshe is doing welltoday. She only have occasional coughwith wheezingand mostly at night. 3.GERD (gastroesophageal reflux disease) -Reviewed GI office visit noteand fluoroscopy result -Pzjzdcbylclghjcihm04 mgin the morning,advised to take famotidine 20 mgat night. -Advised to avoid triggers:Like spicy food,fatty food. -Patient is scheduled for endoscopy in February2025 .-Follow-up with GIspecialist 4.HYPERTENSION. Chronic. Stable. Blood pressure today 126/74. Continue amlodipine 5 mg 1 tablet once a day,hydrochlorothiazide 25 mg 1 tablet once a day, igavjxon98 mg 1 tabletonce a day. Monitor blood pressure. Decrease salt intake. 5.Insomnia, Unspecified Chronic. Takeszolpidem 5 mgnightly. Follow-up in 3 months. Will repeatBMP. Attestation Time spent on pre-visit plannin minutes Face to face time spent w/ patient:25 minutes Time spent documenting pertinent clinical information into the EMR:9 minutes Total time:39 minutes Problem List/Past Medical History Ongoing Changing skin lesion Diaphragmatic Hernia without Mention of Obstruction or Gangrene Family history of skin cancer GERD History of basal cell carcinoma History of Meniere's disease HYPERTENSION. Impaired fasting glucose Insomnia, Unspecified Osteopenia Osteoporosis Restless leg syndrome Resolved Basal cell carcinoma Constipation Dysuria Hyperlipemia Left leg pain Weight disorder Wheeze Procedure/Surgical History Mammogram - screening| Service Date: 03/06/2022T of chest w and wo iv con| Service Date: 03/12/2021T of head wo con| Service Date: 03/11/2021T angiography of neck with contrast| Service Date: 03/11/2021T angiography of head with contrast| Service Date: 03/11/2021hest X-ray| Service Date: 03/11/2021hest X-ray| Service Date: 03/07/2021Ultrasound scan of pelvis| ServiceDate: 08/16/2020Bone density scan report| Service Date: 07/07/2020Shave biopsy of skin| Service Date: 04/28/2020Mammogram| Service Date: 05/01/2019Shave biopsy and cauterisation of skin| Service Date: 03/24/2019Mohs surgery| Service Date: 10/21/2018Shave biopsy and cauterization of skin| Service Date: 09/22/2018Mammogram - screening| Service Date: 01/28/2018Mammogram - screening| Service Date: 12/28/2016Bone density finding| Service Date: 04/26/2016Colonoscopy| Service Date: 04/18/2016Mammogram| Service Date: 12/20/2015Mammogram - screening| Service Date: 11/02/2014Cataract surgery| Service Date: 2010Colonoscopy| Service Date: 1986Tubal Ligation|Service Date: 1966Appendectomy| Service Date: 1966cystocele repairHysterectomy Medications amLODIPine(amLODIPine 5 mg oral tablet), 1 tab, PO, Daily budesonide-formoterol(budesonide-formoterol 160 mcg-4.5 mcg/inh inhalation aerosol), 2 inh, inhaled, bid, 2 refills cholecalciferol(Vitamin D3 1000 intl units (25 mcg) oral capsule), 1000 Int_Unit= 1 cap, PO, Daily famotidine(famotidine 20 mg oral tablet), 20 mg= 1 tab, PO, bid, 5 refills ferrous fumarate(ferrous fumarate 324 mg (106 mg elemental iron) oral tablet), 324 mg= 1 tab, PO, Daily, 2 refills fluticasone nasal(Flonase 50 mcg/inh nasal spray), 2 spray, each nostril, Daily, 5 refills hydroCHLOROthiazide(hydroCHLOROthiazide 25 mg oral tablet), 1 tab, PO, Daily ibuprofen(Motrin) loratadine(Claritin 10 mg oral tablet), 10 mg= 1 tab, PO, Daily losartan(losartan 25 mg oral tablet), 1 tab, PO, Daily, 3 refills magnesium hydroxide(magnesium hydroxide 400 mg oral tablet, chewable), See Instructions, 1 refills omeprazole(omeprazole 20 mg oral delayed release capsule), 20 mg= 1 cap, PO, Daily, 1 refills potassium chloride(Klor-Con M20 oral tablet, extended release), 1 tab, PO, Daily rOPINIRole(rOPINIRole 1 mg oral tablet), 2 tab, PO, Daily simvastatin(simvastatin 20 mg oral tablet), 1 tab, PO, qhs zolpidem(zolpidem 5 mg oral tablet), 5 mg= 1 tab, PO, qhs, PRN Allergies AVIVA Inhibitorscough diltiazemcough metoprololfatigue morphinenausea and vomiting naproxenunknown traZODoneleg cramps Social History Smoking Status Never smoked cigarettes Alcohol - Denies Alcohol Use Exercise - Occasional exercise Exercise type:Walking Substance Abuse - Denies Substance Abuse Tobacco - Denies Tobacco Use Intake (IView) Smoking History Cigarette smoker: Never smoked cigarettes Tobacco Product Use: Never used other tobacco products Family History Aortic aneurysm..: Father and Brother. High Blood Pressure: Father and Maternal Aunt. Stroke: Maternal Aunt. Health Status Family Member(s) Immunizations Vaccine Date Status influenza virus vaccine, inactivated 09/11/2023 Recorded influenza virus vaccine, inactivated 11/29/2021 Given SARS-CoV-2 (COVID-19) mRNA-1273 vaccine 01/17/2021 Recorded SARS-CoV-2 (COVID-19) mRNA-1273 vaccine 12/19/2020 Recorded tetanus/diphtheria/pertuss, acel (Tdap) 04/19/2020 Given influenza virus vaccine, inactivated 08/13/2019 Given zoster vaccine, inactivated 01/2019 Recorded zoster vaccine, inactivated 07/12/2018 Recorded influenza virus vaccine, inactivated 11/27/2017 Recorded Comments : 2018-04-14: Historical information-source unspecified influenza virus vaccine, inactivated 09/28/2016 Given pneumococcal 13-valent vaccine 09/28/2015 Given influenza virus vaccine, inactivated 09/12/2015 Recorded Comments : 2018-04-14: Historical information-source unspecified influenza virus vaccine, inactivated 08/11/2015 Recorded influenza virus vaccine, inactivated 09/28/2014 Recorded Comments : 2018-04-14: Historical information-source unspecified pneumococcal 23-valent vaccine 09/29/2012 Recorded Comments : 2018-04-14: Historical information-source unspecified pneumococcal 23-valent vaccine 09/21/2012 Recorded pneumococcal 13-valent vaccine 09/21/2012 Recorded Comments : 2018-04-14: Historical information-source unspecified influenza virus vaccine, inactivated 09/28/2011 Recorded zoster vaccine live 01/11/2010 Recorded Comments : 2018-04-14: Historical information-source unspecified zoster vaccine live 01/10/2010 Recorded influenza virus vaccine, inactivated 07/20/2009 Recorded Comments : 2018-04-14: Historical information-source unspecified hepatitis A adult vaccine 01/27/2008 Recorded Comments : 2018-04-14: Historical information-source unspecified hepatitis A adult vaccine 07/15/2007 Recorded Comments : 2018-04-14: Historical information-source unspecified influenza virus vaccine, inactivated 11/21/2006 Recorded Comments : 2018-04-14: Historical information-source unspecified tetanus toxoids-diphtheria, Td (Adult) 02/14/2006 Recorded Comments : 2018-04-14: Historical information-source unspecified influenza virus vaccine, inactivated 09/18/2005 Recorded Comments : 2018-04-14: Historical information-source unspecified pneumococcal 23-valent vaccine 09/01/2002 Recorded Comments : 2018-04-14: Historical information-source unspecified Recommendations Health Maintenance Pending(in the next year) OverDue Medicare Annual Wellness Visit due12/05/23and every 1year Adult Influenza Vaccine due05/11/24and every 1year Due Adult COVID-19 Vaccination due01/01/25Unknown Frequency Adult Social Determinants of Health Screening due01/01/25Unknown Frequency Satisfied(in the past 1 year) Satisfied Body Mass Index on01/01/25.Satisfied by RICKY Espino Kirsten Breast Cancer Screening on08/06/24.Satisfied by HUE Leal Lynnae Electronic Signature on File Electronically Reviewed/Signed by: Halle Roberts MD Author Signature Dt/Tm:01/01/2025 11:45 AM Department of Family Medicine [facility] Patient Care team information Care Team Personnel Name: STEPHANI Wyatt Tara Position: Nurse Pract - Family Med Member Role: Lifetime Relationship Address: [address] [place] [address] Telecom: [phone] Name: MD Roberts [place] Position: Physician - Family Med Member Role: Primary Care Provider Address: [address] [place] [address] [place] Telecom: [phone] Care Team Related Persons Name: MELVA LE Name: JORDAN LE Insurance Providers Guarantor name: BHUPENDRA LE Health Plan Information #: 1 Payer: [employer] Member Number: [id number] Policy Number: NA Group Number: [id number] Health Plan Information #: 2 Payer: [employer] Member Number: [id number] Policy Number: NA Group Number: [id number]"
--- OUTSIDE RECORDS SUMMARY | 2025-01-19 00:30 | External Medical Summary | Continuity of Care Document ---
Author Name Unknown Organization [facility] ([facility] [address] Address [address] [place], [place] [id number] Care Team Providers Care Head Baggage Porter Name Role Phone Halle Roberts Primary Care Physician [phone] Encounter [facility] [id number] Date(s): 01/08/25 - 01/08/25 [facility] [address], [address] [place] [address] [phone] Encounter Diagnosis HTN (hypertension)(Discharge Diagnosis) - 01/08/25 Hyponatremia(Discharge Diagnosis) - 01/08/25 Vasovagal syncope(Discharge Diagnosis) - 01/08/25 Discharge Disposition: Home or Self Care Attending Physician: STEPHANI Altamirano Sarah A Referring Physician: DO De La O Jona M Encounter Type: Clinic Allergies, Adverse Reactions, Alerts Substance Criticality Severity Reaction Reaction Severity Status naproxen unknown Active diltiazem cough Active metoprolol 1 fatigue Active morphine nausea and vomiting Active AVIVA Inhibitors cough Activ e traZODone 2 leg cramps Active 1fatigue 2leg cramp Assessment and Plan Extracted from: Title:Cardiology Office Visit Note Author:STEPHANI Ramos rd, Sarah A Date:01/08/25 Impression: 1. HTN 2. Vasovagal episode 3. HLD 4. Echo:normal LVF, EF65%, Mild concentric left ventricular hypertrophy, Grade I diastolic dysfunction, mildly dilated ascending aortal of3.6 cm, Moderate tricuspid regurgitation, Mild to moderately elevated pulmonary artery pressures, estimated PASPis 46 mmHg; estimated PAMP is 29 mmHg, Mild to moderate pulmonary regurgitation. Ms. Solorzano's syncopal/presyncopal episode is most consistent with a vagal episode. She has not had one before or since and so for now I would just watch and wait. If it happens again we could consider a fire equipment inspector. Her orthostatic in the clinic today were normal. Her blood pressures have been acceptable in the clinic. She really doesn't remember ever actually having Meniere's disease. Given her significant hyponatremia and leg cramps, I will have her stop the hctz. I would also like her to stop the Liquid IV she has been using as it's probably contributing to her higher blood pressures. She can discontinue the supplemental potassium as well. I will have her recheck a bmp in 2 weeks. She does have some sob if she eats a big mealand walks. She has attributed this to GERD but it's possible this represents angina. Given her advanced age andthat she has not had further episodes since avoiding the combination, I will avoid further workup for now. She'll return to the clinic in 2 weeks for a bp check and 2 months for follow up Immunizations Given and Recorded Vaccine Date Status [...] 7 09/21/12 Recorded pneumococcal 13-valent vaccine 8 09/21/12 Recorded pneumococcal 23-valent vaccine 9 09/29/12 Recorded [...] unspecified 14Result Comment: 2018-04-14: Historical information-source unspecified Problem List Condition Confirmation Course Effective Dates [...] Effective Dates Health Status Clinical Service Informant HTN (hypertension) Discharge Diagnosis 01/08/25 Non-Specified Hyponatremia Discharge Diagnosis 01/08/25 Non-Specified Vasovagal syncope Discharge Diagnosis 01/08/25 Non-Specified Procedures Procedure Date Related Diagnosis Body [...] Completed Tubal Ligation 1966 Completed cystocele repair 18 Compl eted Hysterectomy , 20 Compl eted [...] Most recent to oldest [Reference Range]: 1 2 Patient Weight 72.3 kg (01/08/25 11:01 AM) Heart Rate 96 bpm (01/08/25 11:03 AM) 83 bpm (01/08/25 11:01 AM) Blood Pressure 140/82mmHg (01/08/25 11:03 AM) 132/80mmHg (01/08/25 11:01 AM) BP Location # 1 Left Arm, Other: standing (01/08/25 11:03 AM) Left Arm, Other: sitting (01/08/25 11:01 AM) Social History Social History Type Response 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 Solorzano presents for evaluation of her history of hypertension and an episode of dizziness. She had an episode of lightheadedness about a month ago where she stood up and got very woozy and then felt out of it for about 20 minutes but no loss of consciousness. Someone checked her blood pressure at the time and she was told it was very low. She had an episode of vomiting as well. She has never had anything like that before or since. Her blood pressures at home are usually under 140 systolically but go as high 150s. The only time she feels dyspnea is if she goes for a walk on a full stomach so she generally avoids doing so and hasn't had any dyspnea since making that change. No chest discomfort. No edema. No palpitations. 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 Respiratory: Lungs are clear to auscultation, Respirations are non-labored. Cardiovascular: Normal rate, Regular rhythm, No murmur, No edema, no carotid bruits to auscultation bilaterally. Integumentary: Warm, Dry, [place] Neurologic: Alert, Oriented. Cognition and Speech: Speech clear and coherent. Psychiatric: Cooperative, Appropriate mood & affect. Assessment/Plan Impression: 1. HTN 2. Vasovagal episode 3. HLD 4. Echo:normal LVF, EF65%, Mild concentric left ventricular hypertrophy, Grade I diastolic dysfunction, mildly dilated ascending aortal of3.6 cm, Moderate tricuspid regurgitation, Mild to moderately elevated pulmonary artery pressures, estimated PASPis 46 mmHg; estimated PAMP is 29 mmHg, Mildto moderate pulmonary regurgitation. Ms. Solorzano's syncopal/presyncopal episode is most consistent with a vagal episode. She has not hadone before or since and so for now I would just watch and wait. If it happens again we could consider a fire equipment inspector. Her orthostatic in the clinic today were normal. Her blood pressures have been acceptable in the clinic. She really doesn't remember ever actually having Meniere's disease. Given her significant hyponatremia and leg cramps, I will have her stop the hctz. I would also like her to stop the Liquid IV she has been using as it's probably contributing to her higher blood pressures. She can discontinue the supplemental potassium as well. I will haveher recheck a bmp in 2 weeks. She does have some sob if she eats a big mealand walks. She has attributed this to GERD but it's possible this represents angina. Given her advanced age andthat she has not had further episodessince avoiding the combination, I will avoid further workup for now. She'll return to the clinic in 2 weeks for a bp check and 2 months for follow up Problem List/Past Medical History Ongoing Changing skin lesion Diaphragmatic Hernia without Mention of Obstruction or Gangrene Family history of skin cancer GERD History of basal cell carcinoma History of Meniere's disease HYPERTENSION. Impaired fasting glucose Insomnia, Unspecified Osteopenia Osteoporosis Restless leg syndrome Resolved Basal cell carcinoma Constipation Dysuria Hyperlipemia Left leg pain Weight disorder Wheeze Procedure/Surgical History Mammogram - screening| Service Date: 2CT of chest w and wo iv con| [...] biopsy and cauterisation of skin| Service Date: 03/24/2019[facility] surgery| Service Date: 10/21/2018Shave biopsy and cauterization [...] 2 spray, each nostril, Daily, 5 refills ibuprofen(Motrin) loratadine(Claritin 10 mg oral tablet), 10 [...] Substance Abuse Tobacco - Denies Tobacco Use Family History Aortic aneurysm..: Father and Brother. High Blood Pressure: Father and Maternal Aunt. Stroke: Maternal Aunt. Health Status Family Member(s) Electronic Signature on File CC: Halle Roberts MD [address] [place] [id number] Electronically Reviewed/Signed by: STEPHANI Downey Author Signature Dt/Tm:01/08/2025 02:44 PM [facility] [place] [facility] Patient Care team information Care Team Personnel Name: STEPHANI Wyatt Tara Position: Nurse Pract - Family Med Member Role: Lifetime Relationship Address: [address] [place] [address] Telecom: [phone] Name: MD Roberts [place] Position: Physician - Family Med Member Role: Primary Care Provider Address: [address] [place] [address] Telecom: [phone] Care Team Related Persons Name: MELVA SOLORZANO Name: JORDAN SOLORZANO Insurance Providers Guarantor name: BHUPENDRA SOLORZANO Health Plan Information #: 1 Payer: AET[employer] Member Number: [id number] Policy Number: NA Group Number: [id number] Health Plan Information #: 2 Payer: AETNA Member Number: [id number] Policy Number: NA Group Number: NA"
--- OUTSIDE RECORDS SUMMARY | 2025-01-19 00:30 | External Medical Summary | Continuity of Care Document ---
Author Name Unknown Organization [facility] [address] [place], [place] [address] Care Team Providers Care Machinery Dismantler Name Role Phone Halle Roberts Primary Care Physician [phone] Encounter [facility] [id number] Date(s): 12/29/24 - 12/29/24 [facility] [address] [facility] [address], [address] [place], [place] [phone] Encounter Diagnosis Other disorders of electrolyte and fluid balance, not elsewhere classified (Final) - Elevated white blood cell count, unspecified(Final) - Discharge Disposition: Home or Self Care Attending Physician: MD Roberts [place] Referring Physician: MD Roberts [place] Encounter Type: Clinic Allergies, Adverse Reactions, Alerts Substance Criticality Severity Reaction Reaction Severity Status naproxen unknown Active diltiazem cough Active metoprolol 1 fatigue Active morphine nausea and vomiting Active AVIVA Inhibitors cough Activ e traZODone 2 leg cramps Active 1fatigue 2leg cramp Immunizations Given and Recorded Vaccine Date Status [...] in 04/2016: -1.9 3start fosamax in 07/2020 Procedures Procedure Date Related Diagnosis Body Site [...] screening is recommended unless otherwise clinically indicated. 20for uterine prolapse Results Laboratory List Name Date Basic Metabolic Panel (BASIC METAB PANEL ) 12/29/24 Complete Blood Count w Differential (CBC ,DIFFH) 12/29/24 Most recent to oldest [Reference Range]: 1 eGFR CKD-EPI [>60 mL/min/1.73 m2] 68 mL/ min/1.73 m2 1 (12/29/24 1:10 PM) Estimated CrCl 45.08 mL/min (12/29/24 1:36 PM) MPV [9.0-12.2 fL] 9.5 fL (12/29/24 1:10 PM) Immature Gran% 0.7 % (12/29/24 1:10 PM) Neut% 70.2 % (12/29/24 1:10 PM) Lymph% 16.4 % (12/29/24 1:10 PM) Baker% 8.4 % (12/29/24 1:10 PM) Baso% 0.6 % (12/29/24 1:10 PM) Eos% 3.7 % (12/29/24 1:10 PM) Immat Gran, Abs [0-0.4 K/uL] 0.06 K/uL (12/29/24 1:10 PM) Neut, Abs [2.0-7.7 K/uL] 5.82 K/uL (12/29/24 1:10 PM) Lymph, Abs [1.0-3.4 K/uL] 1.36 K/uL (12/29/24 1:10 PM) Baker, Abs [0-1.0 K/uL] 0.70 K/uL (12/29/24 1:10 PM) Baso, Abs [0-0.1 K/uL] 0.05 K/uL (12/29/24 1:10 PM) Eos, Abs [0-0.5 K/uL] 0.31 K/uL (12/29/24 1:10 PM) Type of Diff: AUTO *Unknown* (12/29/24 1:10 PM) RDW [11.5-14.2 %] 13.2 % (12/29/24 1:10 PM) Anion Gap [5-14 mmol/L] 3 mmol/L *LOW* (12/29/24 1:10 PM) BUN [7-20 mg/dL] 15 mg/dL (12/29/24 1:10 PM) Ca [8.4-10.2 mg/dL] 8.9 mg/dL (12/29/24 1:10 PM) Cl- [96-107 mmol/L] 96 mmol/L (12/29/24 1:10 PM) HCO3 [22-30 mmol/L] 31 mmol/L *HI* (12/29/24 1:10 PM) Cret [0.60-1.00 mg/dL] 0.83 mg/dL (12/29/24 1:10 PM) Glu [74-106 mg/dL] 120 mg/dL *HI* (12/29/24 1:10 PM) Hct [35-44 %] 38.0 % (12/29/24 1:10 PM) Hgb [11.7-15.0 g/dL] 12.1 g/dL (12/29/24 1:10 PM) K [3.5-5.1 mmol/L] 4.3 mmol/L (12/29/24 1:10 PM) MCH [28-33 pg] 30.4 pg (12/29/24 1:10 PM) MCHC [32-36 g/dL] 31.8 g/dL *LOW* (12/29/24 1:10 PM) MCV [81-96 fL] 95.5 fL (12/29/24 1:10 PM) Na [137-145 mmol/L] 130 mmol/L *LOW* (12/29/24 1:10 PM) Plts [150-350 K/uL] 369 K/uL *HI* (12/29/24 1:10 PM) RBC [3.90-5.00 M/uL] 3.98 M/uL (12/29/24 1:10 PM) WBC [4.0-10.4 K/uL] 8.30 K/uL (12/29/24 1:10 PM) 1Result Comment: Testing Performed By: [facility] [address], [facility] [place] [address] Social History Social History Type Response 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 Sex Female Sex Representation Female (finding) Patient Care team information Care Team Personnel Name: STEPHANI Wyatt Tara Position: Nurse Pract - Family Med Member Role: Lifetime Relationship Address: [address] [place] [address] Telecom: [phone] Name: MD Roberts [place] Position: Physician - Family Med Member Role: Primary Care Provider Address: [address] [place] [address] Telecom: [phone] Care Team Related Persons Name: MELVA LE Name: JORDAN LE Insurance Providers Guarantor name: BHUPENDRA LE Health Plan Information #: 1 Payer: AETNA Member Number: [id number] Policy Number: NA Group Number: [id number] Health Plan Information #: 2 Payer: AET[employer] Member Number: [id number] Policy Number: NA Group Number: NA
--- OUTSIDE RECORDS SUMMARY | 2025-01-19 00:30 | External Medical Summary | Continuity of Care Document ---
Author Name Unknown Organization [facility] [address] Address [address] [place], [place] [address] Care Team Providers Care Inpatient Coder Name Role Phone Halle Roberts Primary Care Physician [phone] [id number] Date(s): 01/07/25 - 01/07/25 [facility] [address], [address] [place] [address] [phone] Discharge Disposition: Home or Self Care Attending Physician: DO De La O Jona M Referring Physician: DO De La O Jona [...] Completed cystocele repair Compl eted Hysterectomy , Compl eted 1Impression: There is no mammographic [...] otherwise clinically indicated. 20for uterine prolapse Results Radiology Reports * Exam Date Time Procedure Performing Provider Status 01/07/25 12:16 PM Echo TransTHORacic TTE Complete Mere Ortega; Final Notes: (Echo TransTHORacic TTE Complete) Reason For Exam: Left axis deviation and Left ventircular and atrial enlargement on EKG Echo TransTHORacic TTE Complete Report Signatures Finalized by Dr. Remi Khan MD on 01/08/2025 10:09 AM [place] Act 112: Yes - Letter to be sent Summary 1. Normal left ventricular size. 2. Preserved left ventricular systolic function with no regional wall motion abnormalities. 3. Ejection fraction as calculated by Biplane Simpsons method is 65%. 4. Mild concentric left ventricular hypertrophy. 5. Grade I diastolic dysfunction of the left ventricle (impaired relaxation pattern) with elevated left atrial pressure. 6. Normal right ventricular size and function. 7. Normal biatrial size. 8. 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 9. Moderate tricuspid regurgitation. 10. Mild to moderately elevated pulmonary artery pressures, estimated PASP is 46 mmHg; estimated PAMP is 29 mmHg. 11. Mild to moderate pulmonary regurgitation. 12. No prior studies for comparison. Patient Info Name: BHUPENDRA LE Age: 89 years : 1935 Gender: Female Ht: 157 cm Wt: 77 kg BSA: 1.87 m2 HR: 76 bpm BP: 154 / 82 mmHg Heart Rhythm: Sinus Rhythm Technical Quality: Fair Exam Date: 01/07/2025 11:07 AM Exam Location: [facility] Patient Status: Outpatient Staff Ordering Physician: Jeyson De La O Visiting Professor: Mere Khan RDCS, RVT Attending Physician: Jeyson De La O Study Info CPT 53573 - Indications R9431 - Abnormal electrocardiogram ECG EKG Procedure(s) * A complete two-dimensional, color flow and Doppler transthoracic echocardiogram was performed. Exam Type: Cardiac Basic Left Ventricle Normal left ventricular size. Preserved left ventricular systolic function with no regional wall motion abnormalities. Ejection fraction as calculated by Biplane Simpsons method is 65%. Mild concentric left ventricular hypertrophy. Grade I diastolic dysfunction of the left ventricle (impaired relaxation pattern) with elevated left atrial pressure. Right Ventricle Normal right ventricular size and function. TAPSE is normal, 1.8 cm. Left Atrium Normal left atrial size. Right Atrium Normal right atrial size. Atrial Septum Lipomatous hypertrophy of the atrial septum; appears intact. Aortic Valve Mildly calcified, tricuspid aortic valve without stenosis or insufficiency. Pulmonic Valve Mild to moderate pulmonary regurgitation. Estimated pulmonary arterial mean pressure 29 mmHg. Mitral Valve Calcified mitral valve annulus without stenosis. Trace mitral valve regurgitation. Tricuspid Valve Moderate tricuspid regurgitation. Mild to moderately elevated pulmonary artery pressures, estimated PASP is 46 mmHg; estimated PAMP is 29 mmHg. Pericardium/Pleural No pericardial effusion. Inferior Vena Cava Dilated IVC with reduced (less than 50%) collapse. Estimated right atrial pressure is 15 mmHg. Aorta Normal aortic root and arch. Calcified aortic root and sinotubular junction. 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 Left Ventricular Outflow Tract Name Value Normal LVOT 2D LVOT Diameter 1.9 cm LVOT Doppler LVOT Peak Velocity 1.11 m/s LVOT Peak Gradient 5 mmHg LVOT Mean Gradient 3 mmHg LVOT VTI 25.35 cm LVOT Stroke Volume 68.48 ml LVOT Stroke Volume Index 0.04 l/m2 LVOT Cardiac Output 5.20 l/min LVOT Cardiac Index 2.79 L/min/m2 Pulmonic Valve Name Value Normal PV 2D RVOT Diameter (2D) 2.1 cm 1.7-2.7 RVOT Doppler RVOT Peak Velocity 0.71 m/s RVOT Peak Gradient 2 mmHg PV Doppler PV Peak Velocity 0.72 m/s PV Peak Gradient 2 mmHg PV Regurgitation Doppler ND Peak Velocity 1.90 m/s Mitral Valve Name Value Normal MV Doppler MV PHT 76 ms MV Diastolic Function MV E Peak Velocity 0.77 m/s <=0.50 MV A Peak Velocity 1.39 m/s MV E/A 0.56 <=0.80 MV Decel Time 261 ms MV Annular TDI MV Septal s' Velocity 5.77 cm/s MV Septal e' Velocity 6.09 cm/s >=7.00 MV E/e' (Septal) 12.7 <=8.0 MV Lateral s' Velocity 6.74 cm/s MV Lateral e' Velocity 5.33 cm/s >=10.00 MV E/e' (Lateral) 14.47 <=8.00 MV e' Average 5.71 MV E/e' (Average) 13.56 <=14.00 Tricuspid Valve Name Value Normal TV Regurgitation Doppler TR Peak Velocity 2.80 m/s <=2.80 TR Peak Gradient 29 mmHg Estimated PAP/RSVP RA Pressure 15 mmHg <=5 PA Systolic Pressure 46 mmHg <40 PA Mean Pressure (ND Velocity) 29 mmHg TV Diastolic Function TV E Peak Velocity 0.42 m/s TV A Peak Velocity 0.32 m/s TV E/A 1.31 0.80-2.00 TV Decel Time 144 ms >=120 TV Annular TDI TV Lateral Dania s' Velocity 11.6 cm/s 9.5-18.7 TV Lateral Dania e' Velocity 12.6 cm/s <7.8 TV E/e' 3.36 2.00-6.00 Aorta Name Value Normal Ascending Aorta Sinus of Valsalva Diameter 3.4 cm 2.7-3.3 Sinus of Valsalva Index 1.85 cm/m2 1.60-2.00 Prox Asc Ao Diameter 3.6 cm 2.3-3.1 Prox Asc Ao Diameter Index 1.91 cm/m2 1.30-1.90 Thoracic Aorta Ao Arch Diameter 3.0 cm Desc Ao Peak Velocity 0.70 m/s Desc Ao Peak Gradient 2 mmHg Venous Name Value Normal IVC/SVC IVC Diameter (Insp 2D) 1.2 cm IVC Diameter (Exp 2D) 2.3 cm <=2.1 IVC Diameter Percent Change (2D) 46 % >=50 Aortic Valve Name Value Normal AV Doppler AV Peak Velocity 1.36 m/s <2.00 AV Peak Gradient 7 mmHg AV Area (Cont Eq Ronnie) 2.2 cm2 AV Area Index (Cont Eq Ronnie) 1.17 cm2/m2 AV V1/V2 Ratio 0.81 AV Regurgitation 2D LVOT Area 2.7 cm2 Ventricles Name Value Normal LV Dimensions 2D/MM IVS Diastolic Thickness (2D) 1.1 cm 0.6-0.9 LVID Diastole (2D) 3.9 cm 3.3-5.1 LVIW Diastolic Thickness (2D) 1.1 cm 0.6-0.9 LVID Systole (2D) 2.2 cm 2.2-3.5 LVOT Diameter 1.9 cm LV Mass (2D Cubed) 142.23 g 67.00-162.00 Relative Wall Thickness (2D) 0.57 LV Fractional Shortening/Ejection Fraction 2D/MM LV Fractional Shortening (2D) 43 % 27-45 LV Diastolic Volume (4C MOD) 63 ml LV Diastolic Volume (2C MOD) 61 ml LV Diastolic Volume (BP MOD) 62 ml 46-106 LV Diastolic Volume Index (BP MOD) 33.45 ml/m2 29.00-61.00 LV Systolic Volume (BP MOD) 21 ml 14-42 LV Systolic Volume Index (BP MOD) 11.27 ml/m2 8.00-24.00 LV EF (BP MOD) 66 % 58-69 LV SV (BP MOD) 41.37 ml RV Dimensions 2D/MM RV Basal Diastolic Dimension 3.6 cm 2.5-4.1 TAPSE 1.8 cm >=1.7 Atria Name Value Normal LA Dimensions LA Area (4C) 13.1 cm2 LA Length (4C) 4.9 cm LA Area (2C) 17.3 cm2 LA Length (2C) 5.2 cm LA Volume (4C A-L) 29.83 ml LA Volume (2C A-L) 48.80 ml LA Volume (BP A-L) 40 ml 22-52 LA Volume Index (BP A-L) 21.20 ml/m2 <=34.00 RA Dimensions RA Area (4C) 17.8 cm2 <=18.0 Final Signed by:DO Khan Jason D Signed (Electronic Signature):01/07/2025 11:07 Social History Social History Type Response 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 Sex Female Sex Representation Female (finding) Patient Care team information Care Team Personnel Name: STEPHANI Wyatt Tara Position: Nurse Pract - Family Med Member Role: Lifetime Relationship Address: [address] [place] [address] [employer]: [phone] Name: MD Alejandra Halle Position: Physician - Family Med Member Role: Primary Care Provider Address: [address] [place] [address] Telecom: [phone] Care Team Related Persons Name: MELVA LE Name: JORDAN LE Insurance Providers Guarantor name: BHUPENDRA LE Health Plan Information #: 1 Payer: AET Member Number: [id number] Policy Number: NA Group Number: [id number] Health Plan Information #: 2 Payer: AET Member Number: [id number] Policy Number: NA Group Number: NA
[2025-01-19] MEDS ORDERED: ONDANSETRON INJ 2 MG/ML 2 ML VIAL IV PRN (01:46)
[2025-01-19] MEDS ORDERED: HYDROmorphone INJ 0.5 MG/0.5 ML SYR IV PRN (01:46)
[2025-01-19] MEDS ORDERED: METOPROLOL TARTRATE 1 MG/ML VIAL IV PRN (01:46)
[2025-01-19] MEDS: LORazepam 2 MG/1 ML VIAL IV STA (02:24)
--- NOTE | 2025-01-19 02:39 | Surgery Consultation ---
Date of Consultation January 19, 2025 Assessment & Plan (1) SBO (small bowel obstruction): Patient is an 89-year-old female with abdominal pain, nausea, and vomiting with concern of hematemesis. Upon workup WBC elevated at 14 and H&H stable. CT imaging showing SBO with possible SIBO. Since arrival to the hospital, the patient's pain has been controlled with pain medication and she has had no additional episodes of vomiting. On exam the patient is nontoxic appearing and VSS. From a surgical standpoint recommend keeping the patient NPO, currently she is asymptomatic and can hold off on NGT placement however I did explain to her if she does become nauseous/vomiting would recommend placing one for bowel dec ompression. IV hydraion and pain control. Continue to trend H&H. Continue medical management per primary team, surgery will continue to follow History of Present Illness Reason for Consultation: SBO History of Present Illness The patient is a 89-year-old female who presented to the emergency department last evening with complaints of abdominal pain, nausea and vomiting. The patient states that her pain started shortly after breakfast and shortly after had an episode of emesis. She then continued to have 3 additional episodes of vomiting with dark-colored material concerning for blood. The patient states the pain started around her umbilical region and was severe in nature. She also feels more bloated than normal since the onset of her pain. The patient also struggles with chronic constipation and goes several days without having a bowel movement and does take OTC stool softeners. Her last BM was on 01/16 but states she is still passing gas. The patient was ultimately worked up and was found to have CT findings concerning intermediate mid small bowel obstruction and to be considered for small intestinal bacterial overgrowth. The patient was seen and evaluated early this morning at bedside, she is resting comfortably in bed, VSS, and NAD. On exam she is slightly tender in the mid abdominal region however has no signs of acute abdomen. Her pain is currently well controlled and she currently does not feel nauseous. The patient states she has a past surgical history of a partial hysterectomy and open appendectomy years ago. Allergies Allergy/AdvReac Type Severity Reaction Status Date / Time No Known Drug Allergies Allergy Unknown Unknown Verified 01/18/25 23:26 morphine AdvReac Severe Vomiting Unverified 12/23/23 14:05 lisinopril AdvReac Cough Unverified 12/23/23 14:05 Home Medications Medication Instructions Recorded Confirmed Type amlodipine 5 mg tablet 5 mg PO QAM 03/11/21 01/18/25 History cholecalciferol (vitamin D3) 25 25 mcg PO QAM 03/11/21 01/18/25 History mcg (1,000 unit) tablet famotidine 20 mg tablet (Pepcid) 20 mg PO DAILY PRN Acid Reflux 03/11/21 01/18/25 History pantoprazole 40 mg tablet,delayed 40 mg PO QAM 03/11/21 01/18/25 History release simvastatin 20 mg tablet 20 mg PO HS 03/11/21 01/18/25 History albuterol sulfate 90 mcg/actuation 2 puff inhalation Q6H PRN 11/21/23 01/18/25 History aerosol inhaler cough/wheezing ascorbic acid (vitamin C) 500 mg 500 mg PO QAM 11/21/23 01/18/25 History tablet (Vitamin C) dextromethorphan-guaifenesin 10 1 tab-cap PO Q8H PRN Congestion 11/21/23 01/18/25 History mg-200 mg capsule (Mucinex Cough-Chest Congestion HBP) ropinirole 1 mg tablet 1 mg PO BID 11/21/23 01/18/25 History fluticasone propionate 50 2 spray intranasal DAILY 01/18/25 01/18/25 History mcg/actuation nasal spray,suspension losartan 25 mg tablet 25 mg PO DAILY 01/18/25 01/18/25 History zolpidem 5 mg tablet 5 mg PO HS PRN Sleep 01/18/25 01/18/25 History Patient History Medical History (Updated 01/18/25 @ 23:43 by Jerrica Brown PA-C) Restless leg syndrome Family History Other Family history non-contributory Social History Smoking Status: Never smoker Hx Alcohol Use: No Hx Substance Use: No Preferred Language: Bhutanese Communication Ability: Effective It Generalist Required: No Beliefs That Will Affect Care: None Current Living Situation: Spouse Other Information That Helps Us Care for You: No Feels Safe at Home: Yes Safety Concerns: Feels Safe At This Time Assistive Devices: Glasses Review of Systems Constitutional: no fever, no chills and no sweats Respiratory: no cough, no chest congestion, no dyspnea and no wheezing Cardiovascular: no chest pain, no palpitations and no syncope Gastrointestinal: + abdominal pain, + bloating, + nausea, + vomiting, + hematemesis and + constipation Genitourinary: no dysuria, no urinary frequency and no urinary hesitancy Physical Exam Constitutional: WD/WN, vitals as above Respiratory: normal respiratory effort, lungs clear to auscultation Cardiovascular: RRR, no murmur, no edema Gastrointestinal (Abdomen): Abdomen soft, minimally distended, +TTP over mid-abdominal region without rebound, guarding or peritonitis. Skin: no rashes, warm and dry Results & Data Vital Signs (Past 12 Hours) Vital Signs Temp Pulse Pulse Pulse Resp BP BP 01/19/25 01:50 36.9 C 80 18 145/85 H 01/19/25 01:46 36.9 C 80 18 145/85 H 01/19/25 01:46 01/19/25 00:30 81 16 130/91 01/19/25 00:00 79 18 154/91 H 01/18/25 23:30 82 19 156/82 H 01/18/25 23:00 81 15 153/82 H 01/18/25 22:30 81 17 153/76 H 01/18/25 22:00 78 18 153/76 H 01/18/25 21:30 78 17 127/90 01/18/25 20:16 89 01/18/25 20:02 84 18 01/18/25 20:02 84 18 160/101 H 01/18/25 19:56 36.6 C 98 H 19 154/90 H Pulse Ox Pulse Ox O2 Del Method O2 Del Method 01/19/25 01:50 93 Room Air 01/19/25 01:46 93 Room Air 01/19/25 01:46 93 Room Air 01/19/25 00:30 93 01/19/25 00:00 95 01/18/25 23:30 95 01/18/25 23:00 95 01/18/25 22:30 96 01/18/25 22:00 94 Room Air 01/18/25 21:30 96 01/18/25 20:16 01/18/25 20:02 95 Room Air 01/18/25 20:02 95 Room Air 01/18/25 19:56 98 Room Air Diagnostic Findings Exam(s): CT ABDOMEN + PELVIS With Contrast IV Amt: 90 ml optiray 320 EXAM: CT Abdomen and Pelvis With Intravenous Contrast CLINICAL HISTORY: Reason for exam: lower abd pain; vomiting. TECHNIQUE: Axial computed tomography images of the abdomen and pelvis with intravenous contrast. CTDI is 26.8 mGy and DLP is 1219 mGy-cm. Automated exposure control was utilized for the study. A dose lowering technique was utilized adhering to the principles of ALARA. CONTRAST: Patient received 90 ml optiray 320 of IV contrast COMPARISON: Ultrasound from October 25, 2023 FINDINGS: Lung bases: Unremarkable. No mass. No consolidation. ABDOMEN: Liver: Unremarkable. No mass. Gallbladder and bile ducts: Unremarkable. No calcified stones. No ductal dilation. Pancreas: Unremarkable. No mass. No ductal dilation. Spleen: Unremarkable. No splenomegaly. Adrenals: Unremarkable. No mass. Kidneys and ureters: Unremarkable. No solid mass. No hydronephrosis. Stomach and bowel: There are several fluid-filled dilated proximal small bowel loops demonstrate as well as solid-appearing stool throughout the mid small bowel. The distal small bowel is completely decompressed. PELVIS: Appendix: No findings to suggest acute appendicitis. Bladder: Unremarkable. No mass. Reproductive: Unremarkable as visualized. ABDOMEN and PELVIS: Intraperitoneal space: Small amount of edema and free fluid in the right lower quadrant mesentery. No pneumoperitoneum or abscess is seen. There is diverticulosis of the sigmoid colon without evidence of acute diverticulitis. The uterus is absent. No free fluid in the pelvis. Bones/joints: Moderate degenerative changes in the spine. No acute fracture or subluxation is seen. Soft tissues: Unremarkable. Vasculature: The abdominal aorta is mildly calcified irregular but nondilated measuring 2.1 cm. Lymph nodes: Unremarkable. No enlarged lymph nodes. IMPRESSION: 1. There are several fluid-filled dilated proximal small bowel loops demonstrate as well as solid-appearing stool throughout the mid small bowel. The distal small bowel is completely decompressed. Probable intermediate grade mid small bowel obstruction. Consider small intestinal bacterial overgrowth (SIBO). 2. Small amount of edema and free fluid in the right lower quadrant mesentery. No pneumoperitoneum or abscess is seen. There is diverticulosis of the sigmoid colon without evidence of acute diverticulitis. PG Care Time/CCT Total # of Minutes Spent Total Time Spent with Patient: Total time spent is greater than 50% in coordination of care (as documented) at patient's floor/unit and/or counseling patient: [place] [address] INT INP/OBS CARE 1/40MIN Patient Type New History Problem Focused Exam Problem Focused Medical Decision Making Straight Forward Diagnoses SBO (small bowel obstruction) K56.609
[2025-01-19] MEDS: ACETAMINOPHEN 1,000 MG/100 ML VIAL IV SCH (03:55)
[2025-01-19] MEDS: PIPERACILLIN/TAZOBACTAM 4.5 GM/100 ML BAG IV SCH (05:57)
[2025-01-19 06:31] LABS: Basophils # (auto) 0.02 K/uL (0.00-0.20); Basophils % (auto) 0.2 %; Eosinophils # (auto) 0.12 K/uL (0.00-0.50); Eosinophils % (auto) 1.3 %; Hematocrit (blood only) 36.7 % (37.0-47.0); Hemoglobin 11.9 g/dl (12.0-16.0); Immature Granulocytes # (auto) 0.03 K/uL (0.01-0.20); Immature Granulocytes % (auto) 0.3 %; Lymphocytes # (auto) 1.51 K/uL (1.20-3.40); Lymphocytes % (auto) 15.9 %; Mean Corpuscular Hemoglobin 30.4 pg (25.0-34.0); Mean Corpuscular Hgb Conc 32.4 g/dL (32.0-36.0); Mean Corpuscular Volume 93.6 fL (80.0-100.0); Monocytes % (auto) 8.4 %; Neutrophils # (auto) 7.03 K/uL (1.40-6.50); Neutrophils % (auto) 73.9 %; Platelet Count 235 K/uL (130-400); RDW Coefficient of Variation 13.3 % (11.5-14.5); RDW Standard Deviation 46.1 fL (36.4-46.3); Red Blood Count 3.92 M/uL (4.20-5.40); White Blood Count 9.51 K/ul (4.8-10.8)
[2025-01-19 07:11] LABS: Albumin Globulin Ratio 1.9 (0.9-2); Albumin Level 3.8 gm/dl (3.4-5.0); BUN Creatinine Ratio 18.9 (10-20); Calcium 8.7 mg/dl (8.6-10.3); Creatinine Clr Calc Pharmacy 42.2 ml/min; Magnesium 1.5 mg/dl (1.7-2.4); Potassium 3.8 mmol/L (3.5-5.1); Total Protein 5.8 gm/dl (6.0-8.3)
[2025-01-19] MEDS: PANTOprazole 40 MG/10 ML SYR IV SCH (07:52)
[2025-01-19] MEDS: FAMOTIDINE 20MG IV PUSH 20 MG/5 ML SYR IV SCH (07:53)
--- NOTE | 2025-01-19 09:58 | Gastrointestinal Consultation ---
Date of Consultation January 19, 2025 Assessment & Plan (1) SBO (small bowel obstruction): (2) Nausea & vomiting: Plan Patient currently admitted with SBO and seems to be improving with conservative measures. she tells me that she is now passing gas. no further emesis. - continue with supportive care. - continue protonix 40mg BID and famotidine 20mg bid. Supervising Physician Co-Signing Physician Notes I personally saw and examined the patient. I have reviewed the chart and agree with the documentation provided by the CRITICAL CARE TRANSPORT NURSE including discussion about the assessment, treatment and plan. Briefly, 89 year old female with past medical history of hypertension, restless leg syndrome, GERD, past abdominal surgical history consistent of hysterectomy and appendectomy who presented to the ED on 01/18 due to severe abdominal pain and dark emesis, as well as constipation x 3 days. She tells me the last time she moved her bowels or passed gas was 3 days prior to ED evaluation. CT showed distal small bowel decompression concerning for intermediate small bowel obstruction. Since arrival she feels much better, gas in 1 bowel movement. She is tolerating a clear liquid diet. She relates a history of GERD but it has been chronic. Her hemoglobin stable at 12.3. She is already scheduled for an EGD outpatient in February and I would like her to keep this appointment. I suspect her bleeding is from either reflux esophagitis or gastritis that got worse in the setting of a pSBO due to the nausea and vomiting of bilious contents. Supportive care with PPI twice daily for a few days and then once daily until her EGD. GI will sign off please call us with any questions History of Present Illness Reason for Consultation: hematemesis Requesting Physician: Cher Mondragon MD Attending Physician: Cher Mondragon MD History of Present Illness Patient is an 89 year old female with past medical history of hypertension, restless leg syndrome, GERD, past abdominal surgical history consistent of hysterectomy and appendectomy who presented to the ED on 01/18 due to severe abdominal pain and dark emesis, as well as constipation x 3 days. She tells me the last time she moved her bowels or passed gas was 3 days prior to ED evaluation. CT showed distal small bowel decompression concerning for intermediate small bowel obstruction and to be considered for small intestinal bacterial overgrowth. She was admitted and was evaluated by surgery. Since admission, she does feel improved. She still has some abdominal pain but it is better than previously. She is also now passing gas, but has not moved her bowels yet. She still appreciates nausea, but tells me she has not had further vomiting. She had previous colonoscopy through [facility] about 4-5 years ago that was unremarkable per patient. never had EGD. Allergies Allergy/AdvReac Type Severity Reaction Status Date / Time No Known Drug Allergies Allergy Unknown Unknown Verified 01/18/25 23:26 morphine AdvReac Severe Vomiting Unverified 12/23/23 14:05 lisinopril AdvReac Cough Unverified 12/23/23 14:05 Home Medications Medication Instructions Recorded Confirmed Type amlodipine 5 mg tablet 5 mg PO QAM 03/11/21 01/18/25 History cholecalciferol (vitamin D3) 25 25 mcg PO QAM 03/11/21 01/18/25 History mcg (1,000 unit) tablet famotidine 20 mg tablet (Pepcid) 20 mg PO DAILY PRN Acid Reflux 03/11/21 01/18/25 History pantoprazole 40 mg tablet,delayed 40 mg PO QAM 03/11/21 01/18/25 History release simvastatin 20 mg tablet 20 mg PO HS 03/11/21 01/18/25 History albuterol sulfate 90 mcg/actuation 2 puff inhalation Q6H PRN 11/21/23 01/18/25 History aerosol inhaler cough/wheezing ascorbic acid (vitamin C) 500 mg 500 mg PO QAM 11/21/23 01/18/25 History tablet (Vitamin C) dextromethorphan-guaifenesin 10 1 tab-cap PO Q8H PRN Congestion 11/21/23 01/18/25 History mg-200 mg capsule (Mucinex Cough-Chest Congestion HBP) ropinirole 1 mg tablet 1 mg PO BID 11/21/23 01/18/25 History fluticasone propionate 50 2 spray intranasal DAILY 01/18/25 01/18/25 History mcg/actuation nasal spray,suspension losartan 25 mg tablet 25 mg PO DAILY 01/18/25 01/18/25 History zolpidem 5 mg tablet 5 mg PO HS PRN Sleep 01/18/25 01/18/25 History Patient History Medical History (Updated 01/18/25 @ 23:43 by Jerrica Brown PA-C) Restless leg syndrome Family History Other Family history non-contributory Social History Smoking Status: Never smoker Hx Alcohol Use: No Hx Substance Use: No Preferred Language: Mauritian Communication Ability: Effective Ship 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 Psychiatric: Orientation: alert and oriented x 3 Results & Data Vital Signs (Past 12 Hours) Vital Signs Temp Pulse Pulse Pulse Resp BP BP 01/19/25 07:50 01/19/25 07:25 97.7 F 61 18 144/72 H 01/19/25 07:00 65 01/19/25 01:50 98.4 F 80 18 01/19/25 01:49 89 01/19/25 01:46 98.4 F 80 18 01/19/25 01:46 01/19/25 00:30 81 16 130/91 01/19/25 00:00 79 18 154/91 H 01/18/25 23:30 82 19 156/82 H 01/18/25 23:00 81 15 153/82 H 01/18/25 22:30 81 17 153/76 H 01/18/25 22:00 78 18 BP Pulse Ox Pulse Ox O2 Del Method O2 Del Method 01/19/25 07:50 Room Air 01/19/25 07:25 93 Room Air 01/19/25 07:00 01/19/25 01:50 145/85 H 93 Room Air 01/19/25 01:49 01/19/25 01:46 145/85 H 93 Room Air 01/19/25 01:46 93 Room Air 01/19/25 00:30 93 01/19/25 00:00 95 01/18/25 23:30 95 01/18/25 23:00 95 01/18/25 22:30 96 01/18/25 22:00 153/76 H 94 Room Air Coding Level of Care Code 66463 INT INP/OBS CARE MIN Diagnoses SBO (small bowel obstruction) K56.609 Nausea & vomiting R11.2
--- NOTE | 2025-01-19 12:10 | Surgery Progress Note ---
Date of Service January 19, 2025 Assessment & Plan (1) SBO (small bowel obstruction): Plan: Clinically improving. Will check KUB today and if improved will consider starting clear liquids. Gastroenterology planning endoscopy as an outpatient currently not planning evaluation during her inpatient stay. No emergent or urgent indication for surgical intervention. Will continue to follow along closely (2) Upper GI bleed: Admission and Anticipated Discharge Date Admission Date: January 18, 2025 Subjective Patient seen. Feeling considerably better than yesterday. No nausea today Physical Exam Constitutional: WD/WN, vitals as above no acute distress and not ill appearing Eyes: PERRL, conjunctivae normal, anicteric sclerae EOM intact bilaterally ENMT: external ear and nose normal, oropharynx normal Ears: no hearing impairment Neck: trachea midline, no thyromegaly Respiratory: normal respiratory effort; no respiratory distress and does not use accessory muscles Cardiovascular: Rate/Rhythm: regular rate and regular rhythm Gastrointestinal (Abdomen): normal bowel sounds, soft, nontender, no hepatosplenomegaly Skin: no rashes, warm and dry Psychiatric: Orientation: alert, oriented x 3 and cooperative Results & Data Vital Signs (Past 12 Hours) Vital Signs Temp Pulse Pulse Resp BP BP BP 01/19/25 11:40 36.7 C 63 16 142/73 H 01/19/25 07:50 01/19/25 07:25 36.5 C 61 18 144/72 H 01/19/25 07:00 65 01/19/25 01:50 36.9 C 80 18 145/85 H 01/19/25 01:49 89 01/19/25 01:46 36.9 C 80 18 145/85 H 01/19/25 01:46 01/19/25 00:30 81 16 130/91 Pulse Ox Pulse Ox O2 Del Method O2 Del Method 01/19/25 11:40 97 Room Air 01/19/25 07:50 Room Air 01/19/25 07:25 93 Room Air 01/19/25 07:00 01/19/25 01:50 93 Room Air 01/19/25 01:49 01/19/25 01:46 93 Room Air 01/19/25 01:46 93 Room Air 01/19/25 00:30 93 PG Care Time/CCT Total # of Minutes Spent Total Time Spent with Patient: Total time spent is greater than 50% in coordination of care (as documented) at patient's floor/unit and/or counseling patient: Coding Level of Care Code 52566 SUB INP/OBS CARE Diagnoses SBO (small bowel obstruction) K56.609 Upper GI bleed K92.2
--- NOTE | 2025-01-19 12:27 | XRay Report ---
KUB HISTORY: sbo COMPARISON STUDY: CT of the abdomen and pelvis dated 01/18/2025 FINDINGS: Supine view the abdomen demonstrates a nonspecific bowel gas pattern. There is no distended loops appreciated on the present examination. Nondilated partially gas-filled loops of small and lar ge bowel are seen. There is degenerative change and scoliosis in the upper lumbar spine and degenerat micah change and facet arthrosis in the lower lumbar spine. There are no abnormal calcifications or sof t tissue masses identified. IMPRESSION: Nonspecific bowel gas pattern. No evidence of obstruction on the present supine examinati on. ACT 112: Negative or not required by law. The above report was generated using voice recognition software. It may contain grammatical, syntax o r spelling errors. Electronically signed by: Tabitha Hutchins M.D. 01/19/2025 12:25 PM
--- NOTE | 2025-01-19 12:33 | Hospitalist Progress Note ---
Date of Service January 19, 2025 Assessment & Plan (1) SBO (small bowel obstruction): (2) Small intestinal bacterial overgrowth (SIBO): (3) Upper GI bleed: (4) Dehydration: (5) Hyponatremia: (6) Hypertension: Plan Patient is a 89-year-old female with past medical history of hypertension, restless leg syndrome, GERD. Past abdominal surgical history consist of hysterectomy and appendectomy many years ago as per patient. She presented to the ED due to severe abdominal pain and dark vomiting (concern for hematemesis) x 1 day, as well as constipation x [address] showed distal small bowel decompression concerning for intermediate mid small bowel obstruction and to be considered for small intestinal bacterial overgrowth. Patient to be admitted for IV antibiotics, n.p.o. status, and to have general surgery eval. #SBO/SIBO CT abd suggests SBO and possible small intestina bacterial overgrowth Passing gas, but no BM yet GI and Surgery on board No surgical interventions for now Outpatinet colonoscopy per GI Continue IV Zosyn Repeat KUB done, official read pending continue zofran, PPI #UGIB patient with dark colored emesis, unsure if its blood or bile hemodynamically stable, BUN 21, H&H stable Suspect 2/2 vomiting, however to have EGD in outpatient setting in February no vomiting since admission avoid NSAIDs IV Protonix and Pepcid as above GI on board #dehydration/ hyponatremia 2/2 hypovolemia with poor p.o. intake/vomiting NA 132, however chronic and at baseline #HTN Holding home losartan and amlodipine with n.p.o. status Will have prn Lopressor for SBP >185 or DBP >95 Chronic stable diagnoses: GERD - IV Pepcid and Protonix as above HLD - holding statin with NPO status RLS - holding ropinirole and zolpidem with NPO status VTE ppx: SCDs, defer chemical ppx with concern for UGIB Diet: NPO Dispo: med/tele with concern for hypoxia after fentanyl in ED Admission and Anticipated Discharge Date Admission Date: January 18, 2025 Subjective patient seen and examined, feels better, passing gas, but has not had a bowel movement Review of Systems Review of Systems: All systems reviewed are negative, apart from the ones contained in the history. Physical Exam Physical Exam: The patient is awake, alert and oriented 3, well developed and well nourished, normocephalic and atraumatic, lying in bed and in no acute distress. HEENT--PERRL, EOMI, mucous membranes and oropharynx mildly dry Neck--supple. No JVD. No bruits. Thyroid normal, trachea midline, no adenopathy. Heart--normal S1 and S2. No murmurs, rubs or gallops. Lungs--clear bilaterally, no respiratory distress, no accessory muscle use. Abdomen--normal bowel sounds and soft. Extremities--no cyanosis or clubbing. No edema. Dermatologic--normal skin turgor, normal color, no abnormal lymph nodes, no rash. Neurologic--cranial nerves II through XII grossly intact. Rheumatologic--normal range of motion. Psychiatric--normal affect. Results & Data Results & Data Vital Signs (Past 12 Hours) Vital Signs Temp Pulse Pulse Resp BP BP BP 01/19/25 11:40 98.1 F 63 16 142/73 H 01/19/25 07:50 01/19/25 07:25 97.7 F 61 18 144/72 H 01/19/25 07:00 65 01/19/25 01:50 98.4 F 80 18 145/85 H 01/19/25 01:49 89 01/19/25 01:46 98.4 F 80 18 145/85 H 01/19/25 01:46 01/19/25 00:30 81 16 130/91 Pulse Ox Pulse Ox O2 Del Method O2 Del Method 01/19/25 11:40 97 Room Air 01/19/25 07:50 Room Air 01/19/25 07:25 93 Room Air 01/19/25 07:00 01/19/25 01:50 93 Room Air 01/19/25 01:49 01/19/25 01:46 93 Room Air 01/19/25 01:46 93 Room Air 01/19/25 00:30 93 PG Care Time/CCT Total # of Minutes Spent Total Time Spent with Patient: Total time spent is greater than 50% in coordination of care (as documented) at patient's floor/unit and/or counseling patient: Coding Level of Care Code 70763 SUB INP/OBS CARE 2/35MIN Diagnoses SBO (small bowel obstruction) K56.609 Small intestinal bacterial overgrowth (SIBO) K63.8219 Upper GI bleed K92.2 Dehydration E86.0 Hyponatremia E87.1 Hypertension I10 Hypertension type: unspecified Time Spent (min) 35 (6) Hypertension Hypertension type: unspecified Qualified Code(s): I10 - Essential (primary) hypertension
[2025-01-19 12:48] LABS: Hematocrit (blood only) 37.4 % (37.0-47.0); Hemoglobin 12.3 g/dl (12.0-16.0)
[2025-01-19] MEDS: rOPINIRole HCL 1 MG TABLET PO SCH (21:23)
[2025-01-19] MEDS: ZOLPIDEM TARTRATE 5 MG TAB PO PRN (21:23)
[2025-01-19] MEDS: SIMVASTATIN 20 MG TAB PO SCH (21:23)
--- NOTE | 2025-01-20 06:42 | Electrocardiogram Report ---
Test Reason : Blood Pressure : */* mmHG Vent. Rate : 97 BPM Atrial Rate : 97 BPM P-R Int : 140 ms QRS Dur : 82 ms QT Int : 364 ms P-R-T Axes : -7 -49 91 degrees QTcB Int : 462 ms Normal sinus rhythm Left anterior fascicular block Left ventricular hypertrophy with repolarization abnormality ( R in aVL , Gabriel product ) Poor R wave progression, consider anterior IL vs. lead placement vs. LVH Abnormal ECG When compared with ECG of 21-Nov-2023 11:48, No significant change was found Confirmed by Maximino King ([id number]) on 01/20/2025 6:42:25 AM Referred By: REFERRED SELF Confirmed By: Maximino King
[2025-01-20 07:55] LABS: Hematocrit (blood only) 33.2 % (37.0-47.0); Hemoglobin 10.7 g/dl (12.0-16.0); Mean Corpuscular Hemoglobin 30.5 pg (25.0-34.0); Mean Corpuscular Hgb Conc 32.2 g/dL (32.0-36.0); Mean Corpuscular Volume 94.6 fL (80.0-100.0); Mean Platelet Volume 8.7 fL (9.4-12.4); Platelet Count 190 K/uL (130-400); RDW Coefficient of Variation 13.4 % (11.5-14.5); RDW Standard Deviation 46.1 fL (36.4-46.3); Red Blood Count 3.51 M/uL (4.20-5.40); White Blood Count 5.74 K/ul (4.8-10.8)
[2025-01-20 08:17] LABS: BUN Creatinine Ratio 13.5 (10-20); Calcium 8.2 mg/dl (8.6-10.3); Creatinine Clr Calc Pharmacy 43.3 ml/min; Potassium 3.5 mmol/L (3.5-5.1)
--- NOTE | 2025-01-20 10:12 | Gastroenterology Progress Note ---
Date of Service January 20, 2025 Assessment & Plan (1) SBO (small bowel obstruction): Plan: 89 year old female with history of hypertension, restless leg syndrome, GERD, previous abdominal surgical history admitted w/ SBO and concern for hematemesis. There has not been any evidence of active GI bleeding since admission. HGB 10.7 without BUN 12 elevation. Continue supportive measures. Agree w/ IV PPI for 48 hours then transition to PO PPI twice daily. Management of SBO per surgery team. GI to sign off. Recall as needed. I spent a total of 40 minutes on the date of service in review of patient's record, and previously obtained information in person and appropriate medical visit, discussion and education of plan, with patient and/or caregiver, placing orders for tests/referral/procedures as medically necessary and documentation of pertinent clinical information in patient's medical records for their visit today. Admission and Anticipated Discharge Date Admission Date: January 18, 2025 Supervising Physician Co-Signing Physician Notes I personally saw and examined the patient. I have reviewed the chart and agree with the documentation provided by the INSTRUCTIONAL SERVICES SPECIALIST including discussion about the assessment, treatment and plan. Briefly, doing much better and able to tolerate a liquid diet. No further bleeding since she has been here. I suspect the upper GI bleeding was from esophagitis secondary to a PSBO. She will get an outpatient EGD in February which is already scheduled GI will sign off please call us with any questions. Subjective Pt was seen and evaluated, chart reviewed. Tolerating liquids. No further nausea/vomiting. Moving bowels. No report of black or bloody stools. Review of Systems Review of Systems: All other findings negative except as noted in HPI. Physical Exam Constitutional: WD/WN, vitals as above Respiratory: normal respiratory effort Cardiovascular: Rate/Rhythm: regular rate Gastrointestinal (Abdomen): normal bowel sounds, soft, nontender, no hepatosplenomegaly Skin: no rashes, warm and dry Results & Data Results & Data Vital Signs (Past 12 Hours) Vital Signs Temp Pulse Pulse Resp BP Pulse Ox Pulse Ox 01/20/25 07:40 97.3 F L 63 16 148/84 H 95 01/20/25 07:00 63 01/20/25 03:43 98.1 F 68 16 119/70 93 01/20/25 01:46 92 01/19/25 23:00 70 01/19/25 22:51 97.7 F 73 16 98/63 L 92 O2 Del Method O2 Del Method 01/20/25 07:40 Room Air 01/20/25 07:00 01/20/25 03:43 Room Air 01/20/25 01:46 Room Air 01/19/25 23:00 01/19/25 22:51 Room Air Laboratory Results 01/20/25 01/19/25 Range/Units 07:37 12:26 WBC 5.74 (4.8-10.8) K/ul RBC 3.51 L (4.20-5.40) M/uL Hgb 10.7 L 12.3 (12.0-16.0) g/dl Hct 33.2 L 37.4 (37.0-47.0) % MCV 94.6 (80.0-100.0) fL MCH 30.5 (25.0-34.0) pg MCHC 32.2 (32.0-36.0) g/dL RDW Std Deviation 46.1 (36.4-46.3) fL RDW Coeff of Jt 13.4 (11.5-14.5) % Plt Count 190 (130-400) K/uL MPV 8.7 L (9.4-12.4) fL Sodium 137 (136-145) mmol/L Potassium 3.5 (3.5-5.1) mmol/L Chloride 105 (98-107) mmol/L Carbon Dioxide 29 (21-32) mmol/L Anion Gap 3 (3-11) BUN 12 (6-23) mg/dl Creatinine 0.89 (0.6-1.2) mg/dl Est Cr Clr Drug Dosing 43.3 ml/min eGFR 62.71 BUN/Creatinine Ratio 13.5 (10-20) Glucose 93 (70-99(Fasting)) mg/dl Calcium 8.2 L (8.6-10.3) mg/dl PG Care Time/CCT Total # of Minutes Spent Total Time Spent with Patient: Total time spent is greater than 50% in coordination of care (as documented) at patient's floor/unit and/or counseling patient: Coding Level of Care Code 56498 SUB INP/OBS CARE 2/35MIN Diagnoses SBO (small bowel obstruction) K56.609
--- NOTE | 2025-01-20 10:42 | Surgery Progress Note ---
Date of Service January 20, 2025 Assessment & Plan (1) SBO (small bowel obstruction): Plan: Clinically improved. Will advance to low fiber diet. If she tolerates this she could likely be discharged tomorrow. No surgical plans Admission and Anticipated Discharge Date Admission Date: January 18, 2025 Subjective Patient seen. Feeling much better. No pain or nausea. Tolerating clear liquids Physical Exam Constitutional: WD/WN, vitals as above no acute distress and not ill appearing Eyes: PERRL, conjunctivae normal, anicteric sclerae EOM intact bilaterally ENMT: external ear and nose normal, oropharynx normal Ears: no hearing impairment Neck: trachea midline, no thyromegaly Respiratory: normal respiratory effort; no respiratory distress and does not use accessory muscles Cardiovascular: Rate/Rhythm: regular rate and regular rhythm Gastrointestinal (Abdomen): Soft nontender nondistended Skin: no rashes, warm and dry Psychiatric: Orientation: alert, oriented x 3 and cooperative Results & Data Vital Signs (Past 12 Hours) Vital Signs Temp Pulse Pulse Resp BP Pulse Ox Pulse Ox 01/20/25 07:40 36.3 C L 63 16 148/84 H 95 01/20/25 07:00 63 01/20/25 03:43 36.7 C 68 16 119/70 93 01/20/25 01:46 92 01/19/25 23:00 70 01/19/25 22:51 36.5 C 73 16 98/63 L 92 O2 Del Method O2 Del Method 01/20/25 07:40 Room Air 01/20/25 07:00 01/20/25 03:43 Room Air 01/20/25 01:46 Room Air 01/19/25 23:00 01/19/25 22:51 Room Air PG Care Time/CCT Total # of Minutes Spent Total Time Spent with Patient: Total time spent is greater than 50% in coordination of care (as documented) at patient's floor/unit and/or counseling patient: Coding Level of Care Code 43386 SUB INP/OBS CARE 12/05MIN Diagnoses SBO (small bowel obstruction) K56.609
--- NOTE | 2025-01-20 12:01 | Hospitalist Progress Note ---
Date of Service January 20, 2025 Assessment & Plan (1) SBO (small bowel obstruction): (2) Small intestinal bacterial overgrowth (SIBO): (3) Upper GI bleed: (4) Dehydration: (5) Hyponatremia: (6) Hypertension: Plan Patient is a 89-year-old female with past medical history of hypertension, restless leg syndrome, GERD. Past abdominal surgical history consist of hysterectomy and appendectomy many years ago as per patient. She presented to the ED due to severe abdominal pain and dark vomiting (concern for hematemesis) x 1 day, as well as constipation x [address] showed distal small bowel decompression concerning for intermediate mid small bowel obstruction and to be considered for small intestinal bacterial overgrowth. Patient to be admitted for IV antibiotics, n.p.o. status, and to have general surgery eval. #SBO/SIBO On admission, CT abd suggests SBO and possible small intestina bacterial overgrowth KUB done 01/19 shows no SBO Patient tolerating clear liquid diet, passing gas and BM Advance diet to general per surgery discharge tomorrow if diet tolerated Outpatient colonoscopy per GI #UGIB patient with dark colored emesis, unsure if its blood or bile hemodynamically stable, BUN 21, H&H stable Suspect 2/2 vomiting, however to have EGD in outpatient setting in February no vomiting since admission avoid NSAIDs IV Protonix and Pepcid as above GI on board # hyponatremia 2/2 hypovolemia with poor p.o. intake/vomiting Resolved #HTN Resume home losartan and amlodipine Will have prn Lopressor for SBP >185 or DBP >95 Chronic stable diagnoses: GERD - IV Pepcid and Protonix as above HLD - holding statin with NPO status RLS - holding ropinirole and zolpidem with NPO status VTE ppx: SCDs, defer chemical ppx with concern for UGIB Diet: NPO Dispo: hopefully d/c tomorrow Admission and Anticipated Discharge Date Admission Date: January 18, 2025 Subjective Patient seen and examined, by the bedside, says she feels a lot better, tolerating clear liquid diet, ready for advance Review of Systems Review of Systems: All systems reviewed are negative, apart from the ones contained in the history. Physical Exam Physical Exam: The patient is awake, alert and oriented 3, well developed and well nourished, normocephalic and atraumatic, lying in bed and in no acute distress. HEENT--PERRL, EOMI, mucous membranes and oropharynx mildly dry Neck--supple. No JVD. No bruits. Thyroid normal, trachea midline, no adenopathy. Heart--normal S1 and S2. No murmurs, rubs or gallops. Lungs--clear bilaterally, no respiratory distress, no accessory muscle use. Abdomen--normal bowel sounds and soft. Extremities--no cyanosis or clubbing. No edema. Dermatologic--normal skin turgor, normal color, no abnormal lymph nodes, no rash. Neurologic--cranial nerves II through XII grossly intact. Rheumatologic--normal range of motion. Psychiatric--normal affect. Results & Data Results & Data Vital Signs (Past 12 Hours) Vital Signs Temp Pulse Pulse Resp BP Pulse Ox Pulse Ox 01/20/25 07:40 97.3 F L 63 16 148/84 H 95 01/20/25 07:00 63 01/20/25 03:43 98.1 F 68 16 119/70 93 01/20/25 01:46 92 O2 Del Method O2 Del Method 01/20/25 07:40 Room Air 01/20/25 07:00 01/20/25 03:43 Room Air 01/20/25 01:46 Room Air PG Care Time/CCT Total # of Minutes Spent Total Time Spent with Patient: Total time spent is greater than 50% in coordination of care (as documented) at patient's floor/unit and/or counseling patient: Coding Level of Care Code 55604 SUB INP/OBS CARE 2/35MIN Diagnoses SBO (small bowel obstruction) K56.609 Small intestinal bacterial overgrowth (SIBO) K63.8219 Upper GI bleed K92.2 Dehydration E86.0 Hyponatremia E87.1 Hypertension I10 Hypertension type: unspecified Time Spent (min) 35 (6) Hypertension Hypertension type: unspecified Qualified Code(s): I10 - Essential (primary) hypertension
[2025-01-20] MEDS ORDERED: ZOLPIDEM TARTRATE 5 MG TAB PO PRN (12:02)
[2025-01-20] MEDS: amLODIPine BESYLATE 5 MG TAB PO SCH (12:37)
[2025-01-20] MEDS: LOSARTAN POTASSIUM 25 MG TAB PO SCH (12:38)
[2025-01-20] MEDS ORDERED: SIMVASTATIN 20 MG TAB PO SCH (21:00)
[2025-01-21 03:51] VITALS: RESP 18
[2025-01-21 06:41] LABS: Calcium 8.7 mg/dl (8.6-10.3); Creatinine Clr Calc Pharmacy 38.6 ml/min; Potassium 3.5 mmol/L (3.5-5.1)
[2025-01-21 07:35] VITALS: BP 185/97; PULSE 83; TEMP 97.7; O2SAT 92
--- NOTE | 2025-01-21 09:51 | Surgery Progress Note ---
Date of Service January 21, 2025 Assessment & Plan (1) SBO (small bowel obstruction): Plan: Pt denies abd discomfort/pain, abd soft nontender non distended +flatus +BM tolerating low fiber diet continue low fiber diet on d/c for next few weeks General surgery will sign off at this time , call with questions/concerns Admission and Anticipated Discharge Date Admission Date: January 18, 2025 Subjective Denies abd pain, n/v , +flatus +Bm Review of Systems Constitutional: no fever and no chills Respiratory: no dyspnea Cardiovascular: no chest pain Gastrointestinal: no abdominal pain, no nausea and no vomiting Psychiatric: no confusion Physical Exam Constitutional: cooperative and comfortable; no acute distress Respiratory: normal respiratory effort and able to speak in complete sentences; no respiratory distress Cardiovascular: Rate/Rhythm: regular rate Gastrointestinal (Abdomen): Inspection/Auscultation: abdomen not distended Percussion/Palpation: abdomen soft; abdomen nontender Psychiatric: Orientation: alert and oriented x 3 Results & Data Vital Signs (Past 12 Hours) Vital Signs Temp Pulse Pulse Resp BP Pulse Ox O2 Del Method 01/21/25 07:32 97.7 F 83 18 185/97 H 92 Room Air 01/21/25 07:18 81 01/21/25 03:50 97.3 F L 68 18 145/55 H 95 Room Air 01/20/25 22:55 98.1 F 81 16 173/77 H 96 Room Air PG Care Time/CCT Total # of Minutes Spent Total Time Spent with Patient: Total time spent is greater than 50% in coordination of care (as documented) at patient's floor/unit and/or counseling patient: Coding Level of Care Code 06437 SUB INP/OBS CARE 12/05MIN Diagnoses SBO (small bowel obstruction) K56.609
--- NOTE | 2025-01-21 11:33 | Discharge Summary ---
Date of Service January 21, 2025 Admission HPI Per Admitting Provider Patient is a 89-year-old female with past medical history of hypertension, restless leg syndrome, GERD. Past abdominal surgical history consist of hysterectomy and appendectomy many years ago as per patient. She presented to the ED due to severe abdominal pain and dark vomiting (concern for hematemesis) x 1 day, as well as constipation x [address] showed distal small bowel decompression concerning for intermediate mid small bowel obstruction and to be considered for small intestinal bacterial overgrowth. Patient to be admitted for IV antibiotics, n.p.o. status, and to have general surgery eval. Patient seen at bedside with her , daughter, and son-in-law present. She stated that today she began vomiting, approximately 3 times, dark material that was concerning for blood. She has been unable to tolerate any p.o. intake today. She has not vomited since coming into the ED. She also has significant abdominal pain that was relieved with fentanyl in the ED however became hypoxic with O2 stats reported in the 80s. On admission, nausea and pain are well- controlled. Patient stated she has chronic constipation and typically goes several days without having a bowel movement, her last bowel movement was on Saturday. Patient denies fever, chills, headache, dizziness, lightheadedness, dyspnea, chest pain. she stated she follows with [facility] and had a echocardiogram last week due to syncope that she reports was negative. She also had a barium swallow approximately a month ago which did show something abnormal with her esophagus however she is not sure which showed, she follows with [facility] GI. She stated she is to have an EGD at the end of February with GI. She stated her previous colonoscopies have not shown any allergies. She does not use nicotine products for frequently drink alcohol. She denies past history of CA, DM, previous VTE, ulcerative colitis, Crohn's disease, history of small bowel obstructions. She took her morning medications but did not yet take her evening medications. She wishes to be full code. Admission Exam (Per Admitting) Constitutional The patient is awake, alert and oriented 3, well developed and well nourished, normocephalic and atraumatic, lying in bed and in no acute distress. HEENT--PERRL, EOMI, mucous membranes and oropharynx mildly dry Neck--supple. No JVD. No bruits. Thyroid normal, trachea midline, no adenopathy. Heart--normal S1 and S2. No murmurs, rubs or gallops. Lungs--clear bilaterally, no respiratory distress, no accessory muscle use. Abdomen--normal bowel sounds and soft. Extremities--no cyanosis or clubbing. No edema. Dermatologic--normal skin turgor, normal color, no abnormal lymph nodes, no rash. Neurologic--cranial nerves II through XII grossly intact. Rheumatologic--normal range of motion. Psychiatric--normal affect. Discharge Data Consultations 01/18/25 22:28 ED Decision to Admit Stat 01/18/25 23:10 Consult General Surgery Routine 01/19/25 07:44 Consult Gastroenterology Routine Hospital Course (1) SBO (small bowel obstruction): (2) Small intestinal bacterial overgrowth (SIBO): (3) Upper GI bleed: (4) Dehydration: (5) Hyponatremia: (6) Hypertension: Plan Patient is a 89-year-old female with past medical history of hypertension, restless leg syndrome, GERD. Past abdominal surgical history consist of hysterectomy and appendectomy many years ago as per patient. She presented to the ED due to severe abdominal pain and dark vomiting (concern for hematemesis) x 1 day, as well as constipation x [address] showed distal small bowel decompression concerning for intermediate mid small bowel obstruction and to be considered for small intestinal bacterial overgrowth. Patient to be admitted for IV antibiotics, n.p.o. status, and to have general surgery eval. #SBO/SIBO On admission, CT abd suggests SBO and possible small intestina bacterial overgrowth KUB done 01/19 shows no SBO Patient tolerating clear liquid diet, passing gas and BM Advance diet to general per surgery discharge today on fiber diet Outpatient colonoscopy per GI #UGIB patient with dark colored emesis, unsure if its blood or bile hemodynamically stable, BUN 21, H&H stable Suspect 2/2 vomiting, however to have EGD in outpatient setting in February no vomiting since admission avoid NSAIDs outpatient GI follow up # hyponatremia 2/2 hypovolemia with poor p.o. intake/vomiting Resolved #HTN Resume home losartan and amlodipine Will have prn Lopressor for SBP >185 or DBP >95 Chronic stable diagnoses: GERD - IV Pepcid and Protonix as above HLD - holding statin with NPO status RLS - holding ropinirole and zolpidem with NPO status VTE ppx: SCDs, defer chemical ppx with concern for UGIB Diet: NPO Dispo: d/c home Coding Level of Care Code 89312 INP/OBS DISCH >30 MIN Diagnoses SBO (small bowel obstruction) K56.609 Small intestinal bacterial overgrowth (SIBO) K63.8219 Upper GI bleed K92.2 Dehydration E86.0 Hyponatremia E87.1 Hypertension I10 Hypertension type: unspecified Time Spent (min) 35
== END 2025-01-21 13:45 | disposition home or self-care (01) | DRG 378 ==
LOC: ED 19:53 → SUATTDRO 23:27 → 2W 23:27